=== PATIENT | female | born 1970 | race African-American/Black ===

== ENCOUNTER 2019-03-31 00:08 | Emergency (ER) | payer BC, OTHER ==
[~2019-03-31] VITALS: Ht 167.6 cm; Wt 74.8 kg
[2019-03-31 00:20] VITALS: BP 112/77
[2019-03-31 00:56] LABS: Basophils # (auto) 0 uL; Basophils % (auto) 0.3 % (0.0-2.0); Eosinophils # (auto) 0.1 uL; Hemoglobin 13.2 g/dL (12.2-16.2); Lymphocytes # (auto) 3.1 uL; Lymphocytes % (auto) 51.4 % (10.0-50.0); Mean Corpuscular Hemoglobin 30.5 pg (28.0-32.0); Mean Corpuscular Hgb Conc. 33.9 g/dL (32.0-36.0); Monocytes # (auto) 0.5 uL; Monocytes % (auto) 7.8 % (0.0-12.0); Neutrophils # (auto) 2.4 uL; Neutrophils % (auto) 39.5 % (37.0-80.0); Nucleated Red Blood Cells % 0.1 %; Platelet Count (auto) 242 10^3/uL (140-450); Red Blood Cells 4.34 10^6/uL (4.0-5.20)
[2019-03-31 01:17] LABS: Albumin 3.9 g/dL (3.4-5.0); Calcium 9.1 mg/dL (8.5-10.1); Magnesium 2.3 mg/dL (1.6-2.6); Potassium 4.1 mmol/L (3.5-5.1)
[2019-03-31 01:35] LABS: BUN/Creatinine Ratio 15.9; Bilirubin, Total 0.6 mg/dL (0.2-1.0); Total Protein 7.4 g/dL (6.4-8.2)
[2019-03-31 02:48] LABS: Urine Bacteria FEW /hpf (None Seen); Urine Blood Negative /uL (Negative); Urine Specific Gravity 1.029 (1.001-1.035); Urine WBC <1 /hpf (0 - 5)
== END 2019-03-31 04:59 | disposition left against medical advice (07) ==
LOC: ER 00:08
DX: R11.2 Nausea with vomiting, unspecified (principal); R19.7 Diarrhea, unspecified; R22.0 Localized swelling, mass and lump, head; Z53.21 Procedure and treatment not carried out due to patient leaving prior to being seen by health care provider
CPT/HCPCS: 36415; 80053; 81001; 83735; 84702; 85025

== ENCOUNTER 2023-07-16 19:56 | Emergency (ER) | payer BC ==
[~2023-07-16] VITALS: Ht 167.6 cm; Wt 75.4 kg
[2023-07-16 21:08] LABS: Urine Bacteria FEW /hpf (None Seen); Urine Blood Negative /uL (Negative); Urine Clarity HAZY (Clear); Urine Color Yellow (Yellow); Urine Mucus FEW (None Seen); Urine Protein, UAD TRACE (Negative); Urine Specific Gravity 1.029 (1.001-1.035); Urine Urobilinogen Normal (Negative); Urine WBC 28 /hpf (0 - 5)
[2023-07-16 21:25] LABS: Basophils # (auto) 0 10 ^3/uL (0-0.2); Basophils % (auto) 0.3 % (0.0-2.0); Eosinophils # (auto) 0.1 10 ^3/uL (0-0.8); Eosinophils % (auto) 0.9 % (0.0-7.0); Hematocrit 42.2 % (36.0-46.0); Hemoglobin 14.4 g/dL (12.2-16.2); Lymphocytes # (auto) 3.8 10 ^3/uL (0.4-5.4); Lymphocytes % (auto) 52.9 % (10.0-50.0); Mean Corpuscular Hgb Conc. 34.1 g/dL (32.0-36.0); Mean Corpuscular Volume 88.1 fL (80.0-100.0); Monocytes # (auto) 0.4 10 ^3/uL (0-1.3); Monocytes % (auto) 5.4 % (0.0-12.0); Neutrophils # (auto) 2.9 10 ^3/uL (1.6-8.6); Neutrophils % (auto) 40.5 % (37.0-80.0); Red Blood Cells 4.79 10^6/uL (4.0-5.20); Red Cell Distribution Width 13.1 % (11.8-14.3); White Blood Cell 7.2 10^3/uL (4.4-10.8)
[2023-07-16 21:36] LABS: Alanine Aminotransferase 25 U/L (7-40); Albumin 5.4 g/dL (3.2-4.8); Alkaline Phosphatase 64 U/L (46-116); Anion Gap 5 (5-15); Aspartate Aminotransferase 11 U/L (13-40); BUN/Creatinine Ratio 11.1 (10.0-20.0); Blood Urea Nitrogen 11 mg/dL (9-23); Calcium 10.2 mg/dL (8.7-10.4); Carbon Dioxide 32 mmol/L (20-30); Chloride 104 mmol/L (98-107); Glucose 109 mg/dL (74-106); Potassium 3.5 mmol/L (3.5-5.1); Sodium 141 mmol/L (136-145)
[2023-07-16 21:37] LABS: Bilirubin, Total 1.2 mg/dL (0.2-1.0); Total Protein 7.8 g/dL (5.7-8.2)
[2023-07-16] MEDS ORDERED: cefTRIAXone 1GM/50ML D5W 50 ML IV ONE (22:15)
[2023-07-16] MEDS ORDERED: CEPH500C PO (22:15)
[2023-07-16] MEDS ORDERED: ONDANSETRON HCL 4 MG/2 ML VIAL IV ONE (23:00)
[2023-07-16] MEDS ORDERED: HYDROmorphone HCL 2 MG/ML VL/or syr IV ONE (23:15)
[2023-07-16 23:31] VITALS: TEMP 98; O2SAT 98
[2023-07-16 23:45] VITALS: BP 148/90
[2023-07-17 00:16] VITALS: PULSE 70; RESP 16
== END 2023-07-17 00:20 | disposition home or self-care (01) ==
LOC: ER 19:56
DX: M54.59 Other low back pain (principal); R10.2 Pelvic and perineal pain; N39.0 Urinary tract infection, site not specified
CPT/HCPCS: 36415; 74176; 80053; 81001; 83605; 84702; 85025; 87086; 96365; 96375; 99285; J0696; J1170; J2405

== ENCOUNTER 2024-10-06 06:45 | Inpatient (IN) | payer BC, MEDICAID ==
[~2024-10-06] VITALS: Ht 162.6 cm; Wt 81.0 kg
[~2024-10-06 06:45] MED LIST: AML5T PO; ASPI-325 PO; CEFU500T43 PO; DOCU-265 PO; HYDR-4798; MECL-90 PO; ROSU20TA56 PO; VALS1TAB57 PO
--- NOTE | 2024-10-06 07:25 | ED.PDOC ---
GI ASSESSMENT HPI Comments 54 y.o female presents to the ED for a chief complaint of right lower abdominal pain radiating to her pelvic and right sided flank that presented one day ago. Patient describes pain as sharp, constant, rating a 9/10 on the pain scale and states no alleviating or modifying factors. Patient mentions having nausea and vomiting yesterday but none today. Patient denies any hematuria, dysuria, fever, chills, back pain. Chief Complaint: Abdominal Pain Time Seen by MD: 07:16 Primary Care Provider: JOSE Reviewed Notes: Nurses Notes, Medications, Allergies Allergies: Coded Allergies: Ketorolac Tromethamine (Verified Allergy, Unknown, 01/31/23) PATIENT REPORTS "JITTERNESS" Home Meds Active Scripts Cefuroxime Axetil (Cefuroxime Axetil) 500 Mg Tab, 500 MG PO BID for 7 Days, #14 TAB Prov:HOSSEIN GARCIA MD 11/01/23 Meclizine Hcl (Meclizine Hcl) 25 Mg Tab, 25 MG PO Q8HPRN PRN for 15 Days, #50 TAB Prov:HOSSEIN GARCIA MD 11/01/23 Amlodipine Besylate (NORVASC TABLET) 5 Mg Tb, 5 MG PO DAILY for 90 Days, #90 TAB Prov:HOSSEIN GARCIA MD 11/01/23 Valsartan (Valsartan) 80 Mg Tab, 160 MG PO BID@0700,1800 for 90 Days, #180 TAB Hold if systolic BP <110 Report to PMD if persistent dry cough or angioedema of lips Prov:HOSSEIN GARCIA MD 11/01/23 Reported Medications Aspirin (Aspirin Low Dose) 81 Mg Tab, 1 TAB PO 10/29/23 Docusate Sodium (Docusate Sodium) 100 Mg Cap, 1 CAP PO QHSP PRN for FOR CONSTIPATION 10/29/23 Rosuvastatin Calcium (Rosuvastatin Calcium) 20 Mg Tab, 1 TAB PO 10/29/23 Hydrocodone-Acetaminophen (Hydrocodone Bitartrate/AC 10-325 mg) 1 Tab Tab 10/29/23 Information Source: Patient Mode of Arrival: Ambulatory Timing: Days (1) Duration: Since onset Quality: Sharp Vomitus: None Stool: Normal Severity: Moderate Recent: None Recent Hx of: None Pain Location: RLQ Modifying Factors: Nothing Associated sign and symptoms: Abdominal Pain Past Medical History PAST MEDICAL HISTORY: HTN Surgical History: Denies all surgeries 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 Family History Family History: Reviewed,noncontributory to illness, No family hx of Cancer, No family hx of DM, No family hx of Heart jose cruz, No family hx of HTN, No family hx ofKidney jose cruz, No family hx of Liver jose cruz, No family hx of Lung jose cruz, No family hx of Stroke Social History Smoker: Non-Smoker Alcohol: Denies ETOH Use Drugs: Denies Drug Use Lives In: Home Constitutional: denies: chills, diaphoresis, fatigue, fever, malaise, sweats, weakness, others EENTM: denies: blurred vision, double vision, ear bleeding, ear discharge, ear drainage, ear pain, ear ringing, eye pain, eye redness, hearing loss, mouth pain , mouth swelling, nasal discharge, nose bleeding, nose congestion, nose pain, photophobia, tearing, throat pain, throat swelling, voice changes, others Respiratory: denies: cough, hemoptysis, orthopnea, SOB at rest, shortness of breath, SOB with excertion, stridor, wheezing, others Cardiovascular: denies: chest pain, dizzy spells, diaphoresis, Dyspnea on exertion, edema, irregular heart beat, left arm pain, lightheadedness, palpitations, PND, syncope, others Gastrointestinal: reports: abdominal pain; denies: abdomen distended, blood streaked bowels, constipated, diarrhea, dysphagia, difficulty swallowing, hematemesis, melena, nausea, poor appetite, poor fluid intake, rectal bleeding, rectal pain, vomiting, others Genitourinary: reports: flank pain; denies: abnormal vagina bleeding, burning, dyspareunia, dysuria, frequency, hematuria, incontinence, pain, , vagina discharge, urgency, others Neurological: denies: dizziness, fainting, headache, left sided numbness, left sided weakness, numbness, paresthesia, pre-existing deficit, right sided numbness, right sided weakness, seizure, speech problems, tingling, tremors, weakness, others Musculoskeletal: denies: back pain, gout, joint pain, joint swelling, muscle p ain, muscle stiffness, neck pain, others Integumetry: denies: bruises, change in color, change in hair/nails, dryness, laceration, lesions, lumps, rash, wounds, others Allergic/Immunocompromised: denies: Difficulty Healing, Frequent Infections, Hives, Itching, others Hematologic/Lymphatic: denies: anemia, blood clots, easy bleeding, easy bruising, swollen glands, others Endocrine: denies: excessive hunger, excessive sweating, excessive thirst, excessive urination, flushing, intolerance to cold, intolerance to heat, unexplained weight gain, unexplained weight loss, others Psychiatric: denies: anxiety, bipolar disorder, depression, hopeless, panic disorder, schizophrenia, sleepless, suicidal, others All Other Systems: Reviewed and Negative Physical Exam General Appearance: Moderate Distress HEENT: Normal ENT Inspection, Pharynx Normal, TMs Normal Neck: Full Range of Motion, Non-Tender, Normal, Normal Inspection Respiratory: Chest Non-Tender, Lungs Clear, No Accessory Muscle Use, No Respiratory Distress, Normal Breath Sounds Cardiovascular: No Edema, No JVD, No Murmur, No Gallop, Normal Peripheral Pulses, Regular Rate/Rhythm Breast Exam: Deferred Gastrointestinal: Soft, Suprapubic Genitalia: Deferred Pelvic: Deferred Rectal: Deferred Extremities: No calf tenderness, Normal capillary refill, Normal inspection, Normal range of motion, Non-tender, No pedal edema Musculoskeletal : Apperance: Normal Neurologic: Alert, sharples machine operator II-XII nml as Tested, No Motor Deficits, Normal Affect, Normal Mood, No Sensory Deficits Cerebellar Function: Normal Reflexes: Normal Skin: Dry, Normal Color, Warm Peripheral Pulses: 3+ Radial (R), 3+ Radial (L) Lymphatic: No Adenopathy Was a procedure done? Was a procedure done?: No GI differential Dx Differential Diagnosis: Constipation, Diverticular disease, Esophagitis, Gas tritis/PUD, Gastroenteritis, Ovarian cyst/torsion, Electrolyte Imbalance, Viral Other Differential Diagnosis Colitis X-Ray, Labs, Meds, VS Vital Signs Date Time Temp Pulse Resp B/P (MAP) Pulse Ox O2 Delivery O2 Flow Rate FiO2 10/06/24 08:24 60 18 107/78 10/06/24 07:55 74 16 133/90 10/06/24 07:43 69 18 96 Room Air 10/06/24 07:43 97.6 68 18 133/90 (104) 98 97.6 10/06/24 06:58 97.6 74 16 120/94 (103) 97 Lab Test 10/06/24 07:16 10/06/24 06:58 Range/Units White Blood Count 6.1 4.4-10.8 10^3/uL Red Blood Count 4.79 4.0-5.20 10^6/uL Hemoglobin 14.6 12.2-16.2 g/dL Hematocrit 42.4 36.0-46.0 % Mean Corpuscular Volume 88.6 80.0-100.0 fL Mean Corpuscular Hemoglobin 30.5 28.0-32.0 pg Mean Corpuscular Hemoglobin Concent 34.4 32.0-36.0 g/dL Red Cell Distribution Width 13.4 11.8-14.3 % Platelet Count 239 140-450 10^3/uL Mean Platelet Volume 7.9 6.9-10.8 fL Neutrophils (%) (Auto) 37.0-80.0 % Lymphocytes (%) (Auto) 10.0-50.0 % Monocytes (%) (Auto) 0.0-12.0 % Basophils (%) (Auto) 0.0-2.0 % Neutrophils # (Auto) 1.6-8.6 10 ^3/uL Lymphocytes # (Auto) 0.4-5.4 10 ^3/uL Monocytes # (Auto) 0-1.3 10 ^3/uL Differential Total Cells Counted 100.0 100 Neutrophils % (Manual) 27 L 37.0-80.0 Band Neutrophils % (Manual) 0 Lymphocytes % (Manual) 68 H 10.0-50.0 Monocytes % (Manual) 3 0-12 Eosinophils % (Manual) 2 0-7 Basophils % (Manual) 0 0.0-2.0 Metamyelocytes % (manual) 0 Myelocytes % (Manual) 0 Promyelocytes % (Manual) 0 Blast Cells % (Manual) 0 Reactive Lymphocytes 0 Platelet Estimate Adequate Sodium Level 143 136-145 mmol/L Potassium Level 4.0 3.5-5.1 mmol/L Chloride Level 106 98-107 mmol/L Carbon Dioxide Level 29 20-31 mmol/L Anion Gap 8 5-15 Blood Urea Nitrogen 13 9-23 mg/dL Creatinine 0.96 0.550-1.02 mg/dL Glomerular Filtration Rate Calc 71 >90 mL/min BUN/Creatinine Ratio 13.5 10.0-20.0 Serum Glucose 112 H 74-106 mg/dL Calcium Level 10.2 8.7-10.4 mg/dL Lipase 29 12-53 U/L Urine Color Yellow Yellow Urine Clarity Turbid H Clear Urine pH 5.5 5.0-9.0 Urine Specific [place] 1.028 1.001-1.035 Urine Protein Negative Negative Urine Ketones Negative Negative Urine Blood Negative Negative /uL Urine Nitrite Negative Negative Urine Bilirubin Negative Negative Urine Urobilinogen 2 H Negative mg/dL Urine Leukocyte Esterase Negative Negative /uL Urine RBC 7 0 - 4 /hpf Urine WBC 1 0 - 5 /hpf Urine Squamous Epithelial Cells Few <5 /hpf Urine Bacteria None seen None Seen /hpf Urine Glucose Normal Normal mg/dL Current Medications Medications (Trade) Dose Ordered Sig/Krupa Route Start Time Stop Time Status Last Admin Morphine Sulfate 2 mg ONCE ONCE IV 10/06/24 07:30 10/06/24 07:31 DC 10/06/24 07:55 Ondansetron HCl (Zofran) 4 mg ONCE ONCE IV 10/06/24 07:30 10/06/24 07:31 DC 10/06/24 07:54 Patient alert. Complaining of abdominal pain. Abdomen is soft nontender. Vitals stable. Answering all questions. Ambulating. Continues to have abdominal pain. Excruciating pain. Establish intravenous access. Was given morphine. Was given Zofran. Possible colitis. Reviewed her previous visit. Explained to the patient. Continue cardiac monitoring. Time of 1ST Reevaluation: 07:21 Reevaluation 1ST: Unchanged Patient Education/Counseling: Diagnosis, Treatment, Prognosis Family Education/Counseling: No Family Present Additional Information The following tests were ordered, and results were reviewed by me: LAB, PHA, UA I discussed treatment and results with medical personnel Departure 1 Departure Time of Disposition: 07:30 Impression: Primary Impression: Non-specific colitis Disposition: 09 ADMITTED INPATIENT Admit to: Med Surg Condition: Guarded Critical Care Note Critical Care Time?: No Stability Stability form required: No I personally scribed for DREA MICHELLE MD ([email or web address]) on 10/06/24 at 07:25. Electronically submitted by Jazmín Freeman ([facility]). I personally scribed for DREA MICHELLE MD ([email or web address]) on 10/06/24 at 10:50. Electronically submitted by Jazmín Freeman ([facility]). DREA MICHELLE MD Oct 06, 2024 07:25
[2024-10-06 07:43] LABS: Hematocrit 42.4 % (36.0-46.0); Hemoglobin 14.6 g/dL (12.2-16.2); Mean Corpuscular Hemoglobin 30.5 pg (28.0-32.0); Mean Corpuscular Hgb Conc. 34.4 g/dL (32.0-36.0); Mean Corpuscular Volume 88.6 fL (80.0-100.0); Platelet Count (auto) 239 10^3/uL (140-450); Red Blood Cells 4.79 10^6/uL (4.0-5.20); Red Cell Distribution Width 13.4 % (11.8-14.3); White Blood Cell 6.1 10^3/uL (4.4-10.8)
[2024-10-06 07:44] LABS: Chloride 106 mmol/L (98-107); Sodium 143 mmol/L (136-145)
[2024-10-06 07:45] LABS: Anion Gap 8 (5-15); Calcium 10.2 mg/dL (8.7-10.4); Carbon Dioxide 29 mmol/L (20-31)
[2024-10-06 07:47] LABS: Band Neutrophils % (manual) 0; Basophils % (manual) 0 (0.0-2.0); Blast Cells 0; Metamyelocytes % 0; Myelocytes % 0; Promyelocytes % 0; Reactive Lymphocytes 0
[2024-10-06 07:50] LABS: BUN/Creatinine Ratio 13.5 (10.0-20.0); Blood Urea Nitrogen 13 mg/dL (9-23)
[2024-10-06 07:51] LABS: Lipase 29 U/L (12-53)
[2024-10-06] MEDS: ONDANSETRON HCL 4 MG/2 ML VIAL IV ONE (07:54)
[2024-10-06] MEDS: MORPHINE SULFATE INJ 2 MG/ml SYRG IV ONE (07:55)
[2024-10-06 07:57] LABS: Glucose 112 mg/dL (74-106)
[2024-10-06 08:07] LABS: Urine Bacteria None Seen /hpf (None Seen)
[2024-10-06 08:42] LABS: Eosinophils % (manual) 2 (0-7); Lymphocytes % (manual) 68 (10.0-50.0); Monocytes % (manual) 3 (0-12)
[2024-10-06 08:43] LABS: Platelet Estimate Adequate
[2024-10-06 08:53] LABS: Urine Blood Negative /uL (Negative); Urine Clarity Turbid (Clear); Urine Color Yellow (Yellow); Urine Protein, UAD Negative (Negative); Urine Specific Gravity 1.028 (1.001-1.035); Urine Urobilinogen 2 mg/dL (Negative); Urine WBC 1 /hpf (0 - 5); Urine pH 5.5 (5.0-9.0)
[2024-10-06] MEDS ORDERED: MORPHINE SULFATE INJ 2 MG/ml SYRG IV PRN (10:45)
[2024-10-06] MEDS ORDERED: NITROGLYCERIN 0.4 MG SL TAB SL PRN (10:45)
[2024-10-06] MEDS ORDERED: DOCUSATE SOD 100 MG CAP PO PRN (10:45)
[2024-10-06 11:37] VITALS: BP 132/74; PULSE 56; RESP 18; TEMP 97.6; O2SAT 100
[2024-10-06 11:43] LABS: Magnesium 2.3 mg/dL (1.6-2.6)
[2024-10-06] MEDS: SOD CHL 0.45% 1,000 ML IV ONE (11:56)
[2024-10-06 12:00] VITALS: BP_SYST 141; BP_SYST 153; BP_DIAS 70; BP_DIAS 98; PULSE 100; PULSE 59; RESP 18; RESP 20; TEMP 97.5; TEMP 97.7; O2SAT 90; O2SAT 98
[2024-10-06] MEDS: HYDROmorphone HCL 2 MG/ML VL/or syr IV PRN ×2 (12:12→17:23)
--- NOTE | 2024-10-06 15:28 | DVH ---
ULTRASOUND ABDOMEN COMPLETE INDICATION: pelvic pains' TECHNIQUE: Multiple real-time sonographic images of the abdomen were obtained. COMPARISON: CT abdomen 07/16/2023 FINDINGS: The visualized liver parenchyma appears echogenic consistent with steatosis. . The liver measures 16.8 cm. No discrete hepatic lesion or intrahepatic biliary ductal dilatation is identified. There is no evidence of gallstones, gallbladder wall thickening or pericholecystic fluid. The common biliary duct is not dilated. The right kidney measures 10 cm length. The left kidney measures 10.1 cm. No sonographic evidenc e of nephrolithiasis or hydronephrosis. The spleen measures 7.5 cm and appears within normal limits. Pancreas is obscured by bowel gas. The visualized portions of the IVC and aorta are grossly unremarkable. IMPRESSION: 1. Hepatic steatosis. HS:Y
--- NOTE | 2024-10-06 15:43 | DVH ---
TRANSABDOMINAL AND TRANSVAGINAL PELVIC ULTRASOUND CLINICAL HISTORY: PELVIC PAIN TECHNIQUE: Multiple grayscale ultrasound images were obtained of the pelvis via transabdominal and tr ansvaginal approach. Limited color Doppler and spectral Doppler acquisitions were also obtained. COMPARISON: CT abdomen and pelvis from 07/16/2023 FINDINGS: Uterus: 7.8 x 6.7 x 5.1 cm. The uterine contour is smooth. There is a partially calcified uterine fib roid in the posterior right uterine body measuring up to 3.1 cm. Endometrium: 4.8 mm cervical nabothian cyst No endometrial mass is seen. Right adnexa: right ovary 2.0 x 1.6 x 2.6 cm. Normal arterial blood flow in the ovary. No right adnex al mass seen. Left adnexa: left ovary 2.2 x 1.4 x 1.5 cm. Normal arterial blood flow in the ovary. No left adnexal mass seen. Other: None IMPRESSION: 1. Fibroid uterus. 2. Normal ovaries.
[2024-10-06 17:00] VITALS: BP 151/80; PULSE 65; RESP 19; TEMP 98.3; O2SAT 97
[2024-10-06] MEDS: ASPirin-EC 81 mg tab PO SCH (18:59)
[2024-10-06] MEDS: VALSARTAN 80 MG TAB PO SCH (19:07)
[2024-10-06 21:00] VITALS: BP 131/80; PULSE 53; RESP 16; TEMP 97.4; O2SAT 96
[2024-10-07] VITALS (7 sets, daily range): BP systolic 107–151; BP diastolic 49–87; PULSE 50–68; RESP 15–18; TEMP 97.4–98.6; O2SAT 95–100
[2024-10-07] MEDS: HYDROmorphone HCL 2 MG/ML VL/or syr IV PRN ×3 (02:09→19:04)
[2024-10-07] MEDS: metroNIDAZOLE 500MG/100ML 100 ML IV SCH (02:17)
[2024-10-07] MEDS: CEFEPIME 1GM/ 50ML 50 ML IV SCH (03:37)
[2024-10-07 07:41] LABS: Basophils # (auto) 0 10 ^3/uL (0-0.2); Basophils % (auto) 0.3 % (0.0-2.0); Eosinophils # (auto) 0.1 10 ^3/uL (0-0.8); Eosinophils % (auto) 2.2 % (0.0-7.0); Hematocrit 40.5 % (36.0-46.0); Hemoglobin 14.1 g/dL (12.2-16.2); Lymphocytes # (auto) 2.7 10 ^3/uL (0.4-5.4); Lymphocytes % (auto) 50.3 % (10.0-50.0); Mean Corpuscular Hemoglobin 30.6 pg (28.0-32.0); Mean Corpuscular Hgb Conc. 34.7 g/dL (32.0-36.0); Mean Corpuscular Volume 88.1 fL (80.0-100.0); Monocytes # (auto) 0.4 10 ^3/uL (0-1.3); Monocytes % (auto) 7.3 % (0.0-12.0); Neutrophils # (auto) 2.2 10 ^3/uL (1.6-8.6); Neutrophils % (auto) 39.9 % (37.0-80.0); Nucleated Red Blood Cells % 0.1 %; Platelet Count (auto) 220 10^3/uL (140-450); Red Cell Distribution Width 13.1 % (11.8-14.3); White Blood Cell 5.4 10^3/uL (4.4-10.8)
[2024-10-07 07:54] LABS: Albumin 4.4 g/dL (3.2-4.8); Alkaline Phosphatase 71 U/L (46-116); Anion Gap 9 (5-15); Aspartate Aminotransferase 13 U/L (13-40); Calcium 9.9 mg/dL (8.7-10.4); Carbon Dioxide 26 mmol/L (20-31); Chloride 106 mmol/L (98-107); Lipase 29 U/L (12-53); Potassium 3.8 mmol/L (3.5-5.1); Sodium 141 mmol/L (136-145); Total Protein 6.9 g/dL (5.7-8.2)
[2024-10-07 07:55] LABS: Alanine Aminotransferase 42 U/L (7-40); Bilirubin, Total 1.3 mg/dL (0.2-1.0); Glucose 112 mg/dL (74-106)
[2024-10-07 08:22] LABS: BUN/Creatinine Ratio 12.7 (10.0-20.0); Blood Urea Nitrogen 8 mg/dL (9-23)
[2024-10-07] MEDS: PANTOPRAZOLE 40 MG/10 ML VIAL INJ IV SCH (09:43)
[2024-10-07] MEDS: amLODIPine BESYLATE 5 MG TAB PO SCH (10:00)
--- NOTE | 2024-10-07 11:30 | DVH ---
Exam: CT CT AB PEL WITH ORAL CON ONLY History: RUQ PAIN Comparison Study: CT CT AB PEL WO CON-NO ORAL OR IV on DOS: 07/16/23, CT CT AB PEL WO CON-NO ORAL OR IV on DOS: 01/31/23 Technique: Multidetector spiral CT of the abdomen and pelvis was performed from lung bases to pubic symphysis. Imaging was performed without IV contrast. Axial, coronal and sagittal multiplanar reform ats were obtained from the axial data set by the technologist. Radiation dose : Abdomen/Pelvis: CTDIvol 12 mGy, DLP 566 mGy*cm. Findings: Evaluation of solid organs is limited due to lack of intravenous contrast use. Lung Bases: No acute or significant lung base finding. Normal heart size. No pleural or pericardial effusion. Liver: The liver is normal in size. No focal lesions. Gallbladder and biliary Tree: Unremarkable Spleen: Unremarkable Pancreas: The pancreas is grossly normal in appearance. Adrenal Glands: Unremarkable Kidneys: Punctate right upper pole renal calculus. No hydronephrosis. Bladder: Grossly unremarkable for degree of distention. Bowel: The stomach is grossly normal in appearance. Small bowel and colon are normal in caliber and d istribution. Normal appendix is visualized in the right lower quadrant without findings of appendici tis. Ascites: Absent Lymphadenopathy: No mesenteric, retroperitoneal or periportal lymphadenopathy. Abdominal wall and Mesentery: Unremarkable. Vasculature: The visualized abdominal aorta is normal in size and caliber. Evaluation of abdominal a nd pelvic vessels is limited due to lack of intravenous contrast. Pelvic Organs: Uterus appears enlarged with punctate calcifications, suspect fibroids. Musculoskeletal: No aggressive focal bony lesions, acute fractures or dislocation. IMPRESSION: 1. Punctate nonobstructive right renal calculus. Enlarged uterus with likely fibroids. Radiation optimization: All CT scans at this facility use at least one of these dose optimization monika hniques: Automated exposure control mA and/or kV adjustment per patient size (includes targeted exams where dose is matched to clinical indication) or iterative reconstruction. HS:Y
[2024-10-07] MEDS: GASTROGRAFIN 30 ML SOL ONE (18:36)
[2024-10-07] MEDS: ONDANSETRON HCL 4 MG/2 ML VIAL IV PRN (19:02)
[2024-10-07] MEDS: HYDROcodone-ACET 10/325MG TAB PO PRN (23:18)
[2024-10-08] VITALS (7 sets, daily range): BP systolic 122–151; BP diastolic 65–83; PULSE 51–75; RESP 13–18; TEMP 97.7–98; O2SAT 96–100
[2024-10-08] MEDS: HYDROmorphone HCL 2 MG/ML VL/or syr IV PRN (00:28)
--- NOTE | 2024-10-08 08:19 | DVHINCON2 ---
Date of service: Oct 08, 2024 Reason for Consultation Abdominal pain Uterine Fibroid 3.1 cm History of Present Illness HPI 54y AA female AB8 LMP = Menopause at age 46 Admitted with 2 day history of diffuse lower abd pain, originating in RLQ and now localized to LLQ Pain is constant, radiates to leg. Denies fever/chills, vaginal bleeding, no diarrhea/constipation or rectal bleeding Endorse N/V x 1 episode day before admission. Incidental finding of a 3.1 cm calcified uterine fibroid on CT scan and Pelvic US Patient denies any abnormal uterine bleeding, no pain w/ intercourse, denies bloating or symptoms of mass effect Last PAP within 1 year, sees [employer] Dr. Elaine regularly. 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 + THC use (marijuana) Family Hx: Denies family hx of uterine, breast, colon or ovarian cancers. Home Meds Active Scripts Cefuroxime Axetil (Cefuroxime Axetil) 500 Mg Tab, 500 MG PO BID for 7 Days, #14 TAB Prov:HOSSEIN GARCIA MD 11/01/23 Meclizine Hcl (Meclizine Hcl) 25 Mg Tab, 25 MG PO Q8HPRN PRN for 15 Days, #50 TAB Prov:HOSSEIN GARCIA MD 11/01/23 Amlodipine Besylate (NORVASC TABLET) 5 Mg Tb, 5 MG PO DAILY for 90 Days, #90 TAB Prov:HOSSEIN GARCIA MD 11/01/23 Valsartan (Valsartan) 80 Mg Tab, 160 MG PO BID@0700,1800 for 90 Days, #180 TAB Hold if systolic BP <110 Report to PMD if persistent dry cough or angioedema of lips Prov:HOSSEIN GARCIA MD 11/01/23 Reported Medications Aspirin (Aspirin Low Dose) 81 Mg Tab, 1 TAB PO 10/29/23 Docusate Sodium (Docusate Sodium) 100 Mg Cap, 1 CAP PO QHSP PRN for FOR CONSTIPATION 10/29/23 Rosuvastatin Calcium (Rosuvastatin Calcium) 20 Mg Tab, 1 TAB PO 10/29/23 Hydrocodone-Acetaminophen (Hydrocodone Bitartrate/AC 10-325 mg) 1 Tab Tab 10/29/23 Past Medical History Patient Family History: Patient reports no known family medical history. Review of Systems Constitutional: No symptom reported Ears, Nose, & Throat: No symptom reported Eyes: No symptom reported Pulmonary/Respiratory: No symptom reported Cardiovascular: No symptom reported Gastrointestinal: Nausea, Vomiting, Abdominal Pain Genitourinary: No symptom reported Musculoskeletal: No symptom reported Skin: No symptom reported Psychiatric: No symptom reported Endocrine: No symptom reported Hemotologic/Lymphatic: No symptom reported H&P Exam Vital Signs Vital Signs Date Time Temp Pulse Resp B/P (MAP) Pulse Ox O2 Delivery O2 Flow Rate FiO2 10/08/24 07:02 150/78 10/08/24 05:02 75 17 10/08/24 05:00 98.0 100 98.0 10/07/24 20:00 Room Air* 0 21 General Appeara: Well developed, Well nourished, Normal Appearance Head Exam: Normal inspection Neck Exam: Normal inspection Eye Exam: bilateral eye PERRL Pulmonary/Respiratory: Normal inspection, Normal breath sounds Cardiovascular/Chest: Normal inspection, Regular rate, Normal Rhythm Abdominal Exam: Normal bowel sounds, Soft, No hepatospenomegaly, No masses, Oth er (Tender in RLQ and LLQ, no rebound) Abdominal Pain Onset Location: RLQ Rectal Exam: Deferred Back Exam: Normal inspection Pelvic Exam: Not done 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 SLITTER Exam: Normal hearing, Normal speech Appearance: Appropriate appearance, Appropriate insight Thoughts/Psych: Normal thought pattern Labs/Xrays PATIENT: RAMANA OLSONCT: [id number] UNIT: [id number] : 1970 LOC: [facility] ROOM / BED: [facility] / A AGE / SEX: 54 / F ADM STATUS: ADM IN SERVICE 0000 ORDERING PHYSICIAN: HOSSEIN GARCIA MD PROCEDURE(s): PELUS - PELVIC REASON: PELVIC PAIN ORDER NUMBER(s): [id number], ACCESSION NUMBER(s): [id number] TRANSABDOMINAL AND TRANSVAGINAL PELVIC ULTRASOUND CLINICAL HISTORY: PELVIC PAIN TECHNIQUE: Multiple grayscale ultrasound images were obtained of the pelvis via transabdominal and transvaginal approach. Limited color Doppler and spectral Doppler acquisitions were also obtained. COMPARISON: CT abdomen and pelvis from 07/16/2023 FINDINGS: Uterus: 7.8 x 6.7 x 5.1 cm. The uterine contour is smooth. There is a partially calcified uterine fibroid in the posterior right uterine body measuring up to 3.1 cm. Endometrium: 4.8 mm cervical nabothian cyst No endometrial mass is seen. Right adnexa: right ovary 2.0 x 1.6 x 2.6 cm. Normal arterial blood flow in the ovary. No right adnexal mass seen. Left adnexa: left ovary 2.2 x 1.4 x 1.5 cm. Normal arterial blood flow in the ovary. No left adnexal mass seen. Other: None IMPRESSION: 1. Fibroid uterus. 2. Normal ovaries. ATED BY: ENDER COOLEY MD DICTATED DATE/TIME: 10/06/24 1541 Labs Test 10/07/24 06:58 10/06/24 07:16 10/06/24 06:58 Range/Units White Blood Count 5.4 4.4-10.8 10^3/uL Red Blood Count 4.60 4.0-5.20 10^6/uL Hemoglobin 14.1 12.2-16.2 g/dL Hematocrit 40.5 36.0-46.0 % Mean Corpuscular Volume 88.1 80.0-100.0 fL Mean Corpuscular Hemoglobin 30.6 28.0-32.0 pg Mean Corpuscular Hemoglobin Concent 34.7 32.0-36.0 g/dL Red Cell Distribution Width 13.1 11.8-14.3 % Platelet Count 220 140-450 10^3/uL Mean Platelet Volume 7.8 6.9-10.8 fL Neutrophils (%) (Auto) 39.9 37.0-80.0 % Lymphocytes (%) (Auto) 50.3 H 10.0-50.0 % Monocytes (%) (Auto) 7.3 0.0-12.0 % Eosinophils (%) (Auto) 2.2 0.0-7.0 % Basophils (%) (Auto) 0.3 0.0-2.0 % Neutrophils # (Auto) 2.2 1.6-8.6 10 ^3/uL Lymphocytes # (Auto) 2.7 0.4-5.4 10 ^3/uL Monocytes # (Auto) 0.4 0-1.3 10 ^3/uL Eosinophils # (Auto) 0.1 0-0.8 10 ^3/uL Basophils # (Auto) 0 0-0.2 10 ^3/uL Nucleated Red Blood Cells 0.1 % Sodium Level 141 136-145 mmol/L Potassium Level 3.8 3.5-5.1 mmol/L Chloride Level 106 98-107 mmol/L Carbon Dioxide Level 26 20-31 mmol/L Anion Gap 9 5-15 Blood Urea Nitrogen 8 L 9-23 mg/dL Creatinine 0.63 # 0.550-1.02 mg/dL Glomerular Filtration Rate Calc 106 >90 mL/min BUN/Creatinine Ratio 12.7 10.0-20.0 Serum Glucose 112 H 74-106 mg/dL Calcium Level 9.9 8.7-10.4 mg/dL Total Bilirubin 1.3 H 0.2-1.0 mg/dL Aspartate Amino Transferase (AST) 13 13-40 U/L Alanine Aminotransferase (ALT) 42 H 7-40 U/L Alkaline Phosphatase 71 46-116 U/L Total Protein 6.9 5.7-8.2 g/dL Albumin 4.4 3.2-4.8 g/dL Lipase 29 12-53 U/L Differential Total Cells Counted 100.0 100 Neutrophils % (Manual) 27 L 37.0-80.0 Band Neutrophils % (Manual) 0 Lymphocytes % (Manual) 68 H 10.0-50.0 Monocytes % (Manual) 3 0-12 Eosinophils % (Manual) 2 0-7 Basophils % (Manual) 0 0.0-2.0 Metamyelocytes % (manual) 0 Myelocytes % (Manual) 0 Promyelocytes % (Manual) 0 Blast Cells % (Manual) 0 Reactive Lymphocytes 0 Platelet Estimate Adequate Phosphorus Level 3.0 2.4-5.1 mg/dL Magnesium Level 2.3 1.6-2.6 mg/dL Urine Color Yellow Yellow Urine Clarity Turbid H Clear Urine pH 5.5 5.0-9.0 Urine Specific [place] 1.028 1.001-1.035 Urine Protein Negative Negative Urine Ketones Negative Negative Urine Blood Negative Negative /uL Urine Nitrite Negative Negative Urine Bilirubin Negative Negative Urine Urobilinogen 2 H Negative mg/dL Urine Leukocyte Esterase Negative Negative /uL Urine RBC 7 0 - 4 /hpf Urine WBC 1 0 - 5 /hpf Urine Squamous Epithelial Cells Few <5 /hpf Urine Bacteria None seen None Seen /hpf Urine Glucose Normal Normal mg/dL Microbiology Date/Time Source Procedure Growth Status 10/06/24 06:58 Voided Urine Urine Culture - Preliminary Resulted Assessment/Plan Admitting Diagnosis: Acute abdominal pain, not AUTOMATIC I THREADING 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 AUTOMATIC I THREADING MACHINE FEEDER Will sign off. reconsult if necessary may follow up outpatient in AUTOMATIC I THREADING MACHINE FEEDER clinic upon discharge. Plan discussed with: Patient Date of Service: Oct 08, 2024 Billing Provider: CORINE SOLOMON DO Common Visit Codes: CONSULT ONLY Consultation Codes: [id number] CONSULT <60MIN CORINE SOLOMON DO Oct 08, 2024 08:18
--- NOTE | 2024-10-08 23:54 | DVHHP2 ---
Admitting Diagnosis: History of Present Illness Past Medical History Past medical history records: Reviewed Cardiovascular: Known history of hypertension x 5 years no CAD Recommended valsartan-at times noncompliance Respiratory: No known history of asthma COPD Gastrointestinal: No known history of peptic ulcer disease, GI bleeding Genitourinary: Urinary tract infection Endocrine: No history of diabetes Neurology: No history of CVA Musculoskeletal: Chronic back pains Hemato-oncology: No history of anemia Psychiatric: No history of depression or anxiety Past Surgical History Not contributory Family History No known history of hypertension diabetes CVA, cancer Social History 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, 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 [employer] History of smoking: Cigarettes: Non-smoker History of smoking E cigarettes: Denies History of smoking marijuana: Denies History of drinking alcohol: Denies History of substance abuse: Denies Allergies: Coded Allergies: Ketorolac Tromethamine (Verified Allergy, Unknown, 01/31/23) PATIENT REPORTS "JITTERNESS" Home Meds Active Scripts Cephalexin Monohydrate (Cephalexin) 500 Mg Cap, 500 MG PO Q6HR for 7 Days, #28 CAP Prov:CELSETINO GARDUNO DO 07/16/23 Review of Systems Constitutional: Denies easy tiredness, denies fever or chills HEENT: Denies headache/conjunctival/ENT pains or congestion, Denies hoarse voice, hearing or visual deficit Neck: Denies cervical spine local/radicular pains, denies goiters/stridor Denies stiffness spasms, reduced ROM, RS: Denies chest congestion, cough, wheezing, SOB, pleuritic chest pains CVS: Denies angina, palpitation, SOB, edema, orthopnea, PND GI: Reports loss of appetite, abdominal pains, tenderness, nausea, Denies melena, GI bleeding,constipation, vomiting, diarrhea : Reports dysuria, flank pains, frequency, hematuria, Reports passing foul odor/cloudy turbid urine, nocturia MS: Reports low back pains stiffness, Denies radicular pains, denies generalized myalgias/muscle weakness EXTs: Denies edema, rash, open wounds, discoloration, radicular pains NEURO: Denies hypersomnolence, confused mental status, Denies focal weakness or seizures/tremors/myoclonic jerks SKIN: Denies rashes or open ulcerated wound ENDOCRINE: Denies polyuria, polydipsia, denies intolerance to heat and cold HEM/LYMPH: Denies easy tiredness, bruising, lymphadenopathy ALLERGY: Denies allergic reactions Psychiatry: Denies anxiety or depression disorder Otherwise the Review of Systems is Negative as per History & Physical Interview: Yes Vital Signs Vital Signs Date Time Temp Pulse Resp B/P (MAP) Pulse Ox O2 Delivery O2 Flow Rate FiO2 01/31/23 17:18 65 18 144/66 (92) 95 01/31/23 17:14 65 18 144/66 01/31/23 16:51 77 17 138/68 01/31/23 16:48 97.4 77 18 138/68 (91) 99 97.4 01/31/23 16:15 97.0 68 18 142/79 (100) 98 Physical Exam General appearance: Well-developed, well-nourished middle-aged AA female Reports discomfort due to pelvic pains in no respiratory distress Awake alert oriented x3 no respiratory distress Head: Normocephalic nontraumatic Eyes: EOMI, MOHAMUD, sclera nonicteric, conjunctive- pale ENT: No congestion, NSL bilateral symmetrical, oral mucosa dry Neck: Supple, carotid upstroke +2, trachea midline, JVD-3 cm, C spine- Full ROM No thyroid or lymph node , no use of sternomastoid muscle Chest: Bilateral symmetrical expansions, No costochondral tenderness Breasts: I exam - Bilateral symmetrical, Pexam - deferred Lungs: clear breath sounds all over except reduced at bases CVS: PMI- cm medial to L MCL in fifth ICS , S1-S2 NSR no S3 GI: Abdomen soft, obese, bowel sounds normoactive Bilateral lower quadrant tenderness, no rebound tenderness No hepatosplenomegaly, no mass no hernia , : CVA tenderness, no bladder mass palpable, genitalia-NE SKIN: Turgor normal, color pink, no rash, no icterus, No varicosity, no ulcers or wounds EXTs: No edema, color pink, no rash, no ecchymosis distal pulses +2 capillary refill <2 seconds, no open wounds JOINTS: full range of motion BACK: Para lumbosacral spinal muscle tenderness, LYMPH NODES: No cervical, axillary or inguinal lymph nodes Neuro: Awake alert oriented 4, coherent, all cognitives- intact No pronator drift, no focal motor deficit, No focal sensory deficit, DTR +2, gait steady PSYCH: Affect mildly depressed-denies suicidal ideation Diagnostics lab studies CBC-total WBC 5.8, hemoglobin 14.9 g%/hematocrit 42.3 and platelet 256 K CMP-Na-137, K-4, CL 104, CO2 28, BUN 14, creatinine 1.21 mg/dL Liver panel-AST 15, ALT 36, alkaline phosphatase 67, TP-8.1, TB-0.8 Urine analysis-specific gravity 1029, leukoesterase positive, moderate bacteria Results Labs Test 02/02/23 07:55 02/02/23 03:30 01/31/23 18:34 01/31/23 16:44 Range/Units White Blood Count 4.8 4.4-10.8 10^3/uL Red Blood Count 4.62 4.0-5.20 10^6/uL Hemoglobin 14.2 12.2-16.2 g/dL Hematocrit 41.4 36.0-46.0 % Mean Corpuscular Volume 89.7 80.0-100.0 fL Mean Corpuscular Hemoglobin 30.7 28.0-32.0 pg Mean Corpuscular Hemoglobin Concent 34.2 32.0-36.0 g/dL Red Cell Distribution Width 12.9 11.8-14.3 % Platelet Count 226 140-450 10^3/uL Mean Platelet Volume 7.6 6.9-10.8 fL Neutrophils (%) (Auto) 40.5 37.0-80.0 % Lymphocytes (%) (Auto) 49.2 10.0-50.0 % Monocytes (%) (Auto) 8.6 0.0-12.0 % Eosinophils (%) (Auto) 1.3 0.0-7.0 % Basophils (%) (Auto) 0.4 0.0-2.0 % Neutrophils # (Auto) 1.9 1.6-8.6 10 ^3/uL Lymphocytes # (Auto) 2.3 0.4-5.4 10 ^3/uL Monocytes # (Auto) 0.4 0-1.3 10 ^3/uL Eosinophils # (Auto) 0.1 0-0.8 10 ^3/uL Basophils # (Auto) 0 0-0.2 10 ^3/uL Nucleated Red Blood Cells 0.2 % Sodium Level 136 136-145 mmol/L Potassium Level 4.2 3.5-5.1 mmol/L Chloride Level 106 98-107 mmol/L Carbon Dioxide Level 27 21-32 mmol/L Anion Gap 3 L 5-15 Blood Urea Nitrogen 12 7-18 mg/dL Creatinine 0.86 0.550-1.02 mg/dL Estimated GFR () 89 mL/min Estimated GFR (Non- 74 mL/min BUN/Creatinine Ratio 14.0 10.0-20.0 Serum Glucose 105 74-106 mg/dL Calcium Level 9.0 8.5-10.1 mg/dL Total Bilirubin 0.8 0.2-1.0 mg/dL Aspartate Amino Transferase (AST) 16 15-37 U/L Alanine Aminotransferase (ALT) 30 13-56 U/L Alkaline Phosphatase 61 45-117 U/L Total Protein 7.5 6.4-8.2 g/dL Albumin 3.9 3.4-5.0 g/dL Urine Color Colorless Yellow Urine Clarity Clear Clear Urine pH 5.5 5.0-8.0 Urine Specific [place] 1.014 1.001-1.035 Urine Protein Negative Negative Urine Ketones Negative Negative Urine Blood Negative Negative /uL Urine Nitrite Negative Negative Urine Bilirubin Negative Negative Urine Urobilinogen Normal Negative mg/dL Urine Leukocyte Esterase Negative Negative /uL Urine RBC 1 0 - 4 /hpf Urine WBC 1 0 - 5 /hpf Urine Squamous Epithelial Cells Few <5 /hpf Urine Bacteria Few H None Seen /hpf Urine Epithelial Casts None seen <5 /hpf Urine Glucose Normal Normal mg/dL SARS-CoV-2 Antigen (Rapid) Negative NEGATIVE Differential Total Cells Counted 100.0 100 Neutrophils % (Manual) 38 37.0-80.0 Band Neutrophils % (Manual) 1 Lymphocytes % (Manual) 53 H 10.0-50.0 Monocytes % (Manual) 6 0-12 Eosinophils % (Manual) 2 0-7 Basophils % (Manual) 0 0.0-2.0 Metamyelocytes % (manual) 0 Myelocytes % (Manual) 0 Promyelocytes % (Manual) 0 Blast Cells % (Manual) 0 Reactive Lymphocytes 0 Smudge Cells 1 /100 WBC Platelet Estimate Adequate Giant Platelets Few Test 01/31/23 16:20 Range/Units Urine Mucus Few None Seen Urine Test Negative Negative Microbiology Date/Time Source Procedure Growth Status 01/31/23 00:00 Voided Urine Urine Culture - Final Complete Primary Diagnosis Complicated urinary tract infection Admitting Diagnosis: Complicated UTI a. Failure to oral antibiotic's Bilateral pelvic pains Acute kidney injury Hypovolemia 2' Diagnosis/Comorbidities Chronic back pains Medical decision making Patient presents with symptoms of complicated urinary tract infection Bilateral pelvic pains and lower quadrant tenderness * Urine analysis supportive of complicated UTI which failed to respond to oral antibiotics as outpatient * Recommended urine and blood cultures * Recommended IV antibiotics * Electrolytes reflective of KEARA from state of hypovolemia * Recommended IV hydration * Plan Admit to medical floor Urine and blood cultures IV antibiotics Parenteral analgesics Reconcile home medication Monitor CBC electrolytes VTE precautions Code: Full The patient and/or family is well informed by me about 1. Clinical impression, treatment plans, side effects of medications, course of the disease And prognosis 2. All patient's and concerns raised by patient or family are satisfactorily addressed by me Total time spent 100 minutes 40% of time spent interviewing the patient and physical exam 30% of time spent in gathering lab datas and imaging studies 30 % of time is spent in patient education Plan discussed with: Patient Code Visit Code Visit Total Time (mins): 100 HOSSEIN GARCIA MD Jan 31, 2023 19:47 TRANSCRIBED BY:HOSSEIN GARCIA MD TRANSCRIBED DATE/TIME:01/31/23 194 ELECTRONICALLY SIGNED BY:HOSSEIN GARCIA MD 08/13/23 1014 ELECTRONICALLY CO-SIGNED BY: History of Present Illness 54-year-old middle-aged -[place] female with known history of Hypertension, chronic back pains currently on narcotic analgesics Presented tcolicky crampy pelvic pains at level of 7 out of 10 at times referring to Q [facility] with severe RLQ abdominal/pelvic pains patient denies fever chills, flank pain vomiting. Denies febrile illness but chills. Denies purulent discharge from genitalia Denies history of PID. admits being sexually active. Upon arrival to ER, patient received CT abdomen/pelvis evaluation There was no acute inflammatory conditions of the pelvic organs noted. On other hand, etiologic causes of her severe pains were thought to be from radiolucent nephrolithiasis, UTI. Following to my case discussion with ER physician, patient was admitted to medical floor for further evaluation Patient Family History: Patient reports no known family medical history. Allergies: Coded Allergies: Ketorolac Tromethamine (Verified Allergy, Unknown, 01/31/23) PATIENT REPORTS "JITTERNESS" Home Meds Active Scripts Cefuroxime Axetil (Cefuroxime Axetil) 500 Mg Tab, 500 MG PO BID for 7 Days, #14 TAB Prov:HOSSEIN GARCIA MD 11/01/23 Meclizine Hcl (Meclizine Hcl) 25 Mg Tab, 25 MG PO Q8HPRN PRN for 15 Days, #50 TAB Prov:HOSSEIN GARCIA MD 11/01/23 Amlodipine Besylate (NORVASC TABLET) 5 Mg Tb, 5 MG PO DAILY for 90 Days, #90 TAB Prov:HOSSEIN GARCIA MD 11/01/23 Valsartan (Valsartan) 80 Mg Tab, 160 MG PO BID@0700,1800 for 90 Days, #180 TAB Hold if systolic BP <110 Report to PMD if persistent dry cough or angioedema of lips Prov:HOSSEIN GARCIA MD 11/01/23 Reported Medications Aspirin (Aspirin Low Dose) 81 Mg Tab, 1 TAB PO 10/29/23 Docusate Sodium (Docusate Sodium) 100 Mg Cap, 1 CAP PO QHSP PRN for FOR CONSTIPATION 10/29/23 Rosuvastatin Calcium (Rosuvastatin Calcium) 20 Mg Tab, 1 TAB PO 10/29/23 Hydrocodone-Acetaminophen (Hydrocodone Bitartrate/AC 10-325 mg) 1 Tab Tab 10/29/23 Vital Signs Vital Signs Date Time Temp Pulse Resp B/P (MAP) Pulse Ox O2 Delivery O2 Flow Rate FiO2 10/08/24 21:00 98.0 51 13 133/74 (93) 96 98.0 10/08/24 20:00 Room Air* 0 21 Results Labs Test 10/08/24 11:15 10/07/24 06:58 10/06/24 07:16 10/06/24 06:58 Range/Units White Blood Count 5.4 4.4-10.8 10^3/uL Red Blood Count 4.60 4.0-5.20 10^6/uL Hemoglobin 14.1 12.2-16.2 g/dL Hematocrit 40.5 36.0-46.0 % Mean Corpuscular Volume 88.1 80.0-100.0 fL Mean Corpuscular Hemoglobin 30.6 28.0-32.0 pg Mean Corpuscular Hemoglobin Concent 34.7 32.0-36.0 g/dL Red Cell Distribution Width 13.1 11.8-14.3 % Platelet Count 220 140-450 10^3/uL Mean Platelet Volume 7.8 6.9-10.8 fL Neutrophils (%) (Auto) 39.9 37.0-80.0 % Lymphocytes (%) (Auto) 50.3 H 10.0-50.0 % Monocytes (%) (Auto) 7.3 0.0-12.0 % Eosinophils (%) (Auto) 2.2 0.0-7.0 % Basophils (%) (Auto) 0.3 0.0-2.0 % Neutrophils # (Auto) 2.2 1.6-8.6 10 ^3/uL Lymphocytes # (Auto) 2.7 0.4-5.4 10 ^3/uL Monocytes # (Auto) 0.4 0-1.3 10 ^3/uL Eosinophils # (Auto) 0.1 0-0.8 10 ^3/uL Basophils # (Auto) 0 0-0.2 10 ^3/uL Nucleated Red Blood Cells 0.1 % Sodium Level 141 136-145 mmol/L Potassium Level 3.8 3.5-5.1 mmol/L Chloride Level 106 98-107 mmol/L Carbon Dioxide Level 26 20-31 mmol/L Anion Gap 9 5-15 Blood Urea Nitrogen 8 L 9-23 mg/dL Creatinine 0.63 # 0.550-1.02 mg/dL Glomerular Filtration Rate Calc 106 >90 mL/min BUN/Creatinine Ratio 12.7 10.0-20.0 Serum Glucose 112 H 74-106 mg/dL Calcium Level 9.9 8.7-10.4 mg/dL Total Bilirubin 1.3 H 0.2-1.0 mg/dL Aspartate Amino Transferase (AST) 13 13-40 U/L Alanine Aminotransferase (ALT) 42 H 7-40 U/L Alkaline Phosphatase 71 46-116 U/L Total Protein 6.9 5.7-8.2 g/dL Albumin 4.4 3.2-4.8 g/dL Lipase 29 12-53 U/L Differential Total Cells Counted 100.0 100 Neutrophils % (Manual) 27 L 37.0-80.0 Band Neutrophils % (Manual) 0 Lymphocytes % (Manual) 68 H 10.0-50.0 Monocytes % (Manual) 3 0-12 Eosinophils % (Manual) 2 0-7 Basophils % (Manual) 0 0.0-2.0 Metamyelocytes % (manual) 0 Myelocytes % (Manual) 0 Promyelocytes % (Manual) 0 Blast Cells % (Manual) 0 Reactive Lymphocytes 0 Platelet Estimate Adequate Phosphorus Level 3.0 2.4-5.1 mg/dL Magnesium Level 2.3 1.6-2.6 mg/dL Urine Color Yellow Yellow Urine Clarity Turbid H Clear Urine pH 5.5 5.0-9.0 Urine Specific [place] 1.028 1.001-1.035 Urine Protein Negative Negative Urine Ketones Negative Negative Urine Blood Negative Negative /uL Urine Nitrite Negative Negative Urine Bilirubin Negative Negative Urine Urobilinogen 2 H Negative mg/dL Urine Leukocyte Esterase Negative Negative /uL Urine RBC 7 0 - 4 /hpf Urine WBC 1 0 - 5 /hpf Urine Squamous Epithelial Cells Few <5 /hpf Urine Bacteria None seen None Seen /hpf Urine Glucose Normal Normal mg/dL Microbiology Date/Time Source Procedure Growth Status 10/06/24 06:58 Voided Urine Urine Culture - Final Complete HOSSEIN GARCIA MD Oct 08, 2024 23:54
--- NOTE | 2024-10-08 23:55 | DVHPN2 ---
Progress Note - Dictate Date Seen: Oct 08, 2024 vital signs Vital Sign Date Time Temp Pulse Resp B/P (MAP) Pulse Ox O2 Delivery O2 Flow Rate FiO2 10/08/24 21:00 98.0 51 13 133/74 (93) 96 98.0 10/08/24 20:00 Room Air* 0 21 Total Intake and Output 10/07/24 10/07/24 10/08/24 15:00 23:00 07:00 Intake Total 50 ml 1100 ml 800 ml Balance 50 ml 1100 ml 800 ml medications Current Medications Medications Dose Ordered Sig/Krupa Route Start Time Stop Time Status Last Admin Dose Admin Nitroglycerin 0.4 mg Q5MINP PRN SL 10/06/24 10:45 Morphine Sulfate 2 mg Q30M PRN IV 10/06/24 10:45 Amlodipine Besylate 5 mg DAILY PO 10/07/24 10:00 10/08/24 10:00 Aspirin 81 mg DAILY@DINNER PO 10/06/24 17:30 10/08/24 17:30 Docusate Sodium 100 mg QHSP PRN PO 10/06/24 10:45 Valsartan 160 mg BID@0700,1800 PO 10/06/24 18:00 10/08/24 18:00 Pantoprazole Sodium 40 mg DAILY IV 10/07/24 10:00 10/08/24 10:00 Cefepime HCl 50 ml @ 12.5 mls/hr Q8HR IV 10/07/24 00:00 10/07/24 21:45 Metronidazole 100 ml @ 100 mls/hr Q8HR IV 10/07/24 00:00 10/08/24 13:44 Hydromorphone HCl 0.4 mg Q4HP PRN IV 10/07/24 18:45 10/08/24 18:53 Hydromorphone HCl 0.6 mg Q4HP PRN IV 10/07/24 18:45 10/07/24 19:04 Ondansetron HCl 4 mg Q6HPRN PRN IV 10/07/24 18:45 10/08/24 18:52 Acetaminophen/ Hydrocodone Bitart 1 tab Q6HP PRN PO 10/07/24 18:45 10/08/24 22:18 laboratory and microbiology Laboratory Tests 10/07/24 06:58 Test 10/07/24 06:58 Range/Units Serum Glucose 112 H 74-106 mg/dL HOSSEIN GARCIA MD Oct 08, 2024 23:55
[2024-10-09 01:00] VITALS: BP 144/96; PULSE 53; RESP 12; TEMP 97.4; O2SAT 96
[2024-10-09 05:00] VITALS: BP 110/78; PULSE 50; RESP 12; TEMP 97.8; O2SAT 98
[2024-10-09 09:28] VITALS: BP 113/78; PULSE 56; RESP 16; TEMP 97.8; O2SAT 97
[2024-10-10 18:06] LABS: Chlamydia Trachomatis, NAA Negative (Negative); Neisseria gonorrhoeae, NAA Negative (Negative)
== END 2024-10-09 08:30 | disposition left against medical advice (07) | DRG 392 ==
LOC: ER 06:45 → OVERFLOW 10:42 → WEST WING 15:31
PROVIDERS: ADMIT Specialist; ATTEND Specialist
DX: K52.9 Noninfective gastroenteritis and colitis, unspecified (principal); N39.0 Urinary tract infection, site not specified; N17.9 Acute kidney failure, unspecified; I10 Essential (primary) hypertension; E78.5 Hyperlipidemia, unspecified; Z53.29 Procedure and treatment not carried out because of patient's decision for other reasons; K76.0 Fatty (change of) liver, not elsewhere classified; D25.9 Leiomyoma of uterus, unspecified; E86.1 Hypovolemia; G89.29 Other chronic pain; Z87.891 Personal history of nicotine dependence; Z79.899 Other long term (current) drug therapy; Z79.82 Long term (current) use of aspirin
CPT/HCPCS: 36415; 74176; 76700; 76830; 76856; 80048; 80053; 81001; 83690; 83735; 84100; 85007; 85025; 85027; 87086; G0378; J2405; J2470; J3490

== ENCOUNTER 2024-10-18 11:35 | Emergency (ER) | payer BC, MEDICAID ==
[~2024-10-18] VITALS: Ht 167.6 cm; Wt 74.7 kg
--- NOTE | 2024-10-18 12:26 | DVH ---
CHEST RADIOGRAPH Indication: flu Technique: Single frontal view of the chest was obtained COMPARISON: XY CHEST XRAY 1 VIEW on DOS: 10/30/23, XY CHEST PORTABLE on DOS: 01/31/23 FINDINGS: Lines and Tubes: None Lungs: Clear Pleura: No effusion. No pneumothorax. Cardiomediastinal contours: Unremarkable Bones: Unremarkable IMPRESSION: No acute disease.
[2024-10-18 13:07] VITALS: BP 106/66; PULSE 88; RESP 16; TEMP 99.6; O2SAT 96
--- NOTE | 2024-10-18 14:25 | ED.PDOC ---
History of Present Illness HPI Comments Presents for body aches, cough, headache Chief Complaint: Flu like Time Seen by MD: 12:05 Past Medical History PAST MEDICAL HISTORY: HTN Surgical History: Denies all surgeries MOTOR TESTER History: No Pertinent MOTOR TESTER History Family History Family History: Reviewed,noncontributory to illness, No family hx of Cancer, No family hx of DM, No family hx of Heart jose cruz, No family hx of HTN, No family hx ofKidney jose cruz, No family hx of Liver jose cruz, No family hx of Lung jose cruz, No family hx of Stroke Social History Smoker: Non-Smoker Alcohol: Denies ETOH Use Drugs: Denies Drug Use Lives In: Home X-Ray, Labs, Meds, VS Vital Signs Date Time Temp Pulse Resp B/P (MAP) Pulse Ox O2 Delivery O2 Flow Rate FiO2 10/18/24 13:07 88 16 96 Room Air 10/18/24 13:07 99.6 88 16 106/66 (79) 96 99.6 10/18/24 11:52 99.6 88 16 106/66 (79) 96 Departure 1 Departure Time of Disposition: 14:27 Impression: Primary Impression: Viral syndrome Disposition: 01 HOME / SELF CARE / HOMELESS e-Prescriptions Ibuprofen Micronized (Ibuprofen) 800 Mg Tab 800 MG PO TIDPRN PRN for 10 Days, #30 TAB 0 Refills Prov: DAE BLOUNT NP 10/18/24 Acetaminophen (Acetaminophen) 500 Mg Tab 500 MG PO Q6HP PRN for 10 Days, #40 TAB 0 Refills Prov: DAE BLOUNT NP 10/18/24 Promethazine-Dm (Promethazine Hydrochlorid 6.25-15 mg/5Ml) 1 Mari Mari 5 ML PO TIDPRN PRN for 10 Days, #150 ML 0 Refills Prov: DAE BLOUNT NP 10/18/24 Azithromycin (Azithromycin) 250 Mg Tab 250 MG PO DAILY MDD 500 for 5 Days, #6 TAB 0 Refills 2 TABLETS ORALLY ON DAY ONE, THEN 1 TABLET ORALLY DAILY FOR 4 DAYS Prov: DAE BLOUNT NP 10/18/24 DAE BLOUNT NP Oct 18, 2024 14:25
[2024-10-18] MEDS ORDERED: IBUP-1455 PO (14:30)
[2024-10-18] MEDS ORDERED: ACET500T58 PO (14:30)
[2024-10-18] MEDS ORDERED: PROM1SOL2 PO (14:30)
[2024-10-18] MEDS ORDERED: AZIT-43 PO (14:30)
== END 2024-10-18 14:35 | disposition home or self-care (01) ==
LOC: ER 11:35
DX: B34.9 Viral infection, unspecified (principal); I10 Essential (primary) hypertension
CPT/HCPCS: 71045

== ENCOUNTER 2025-04-03 11:47 | Inpatient (IN) | payer BC, MEDICAID ==
[~2025-04-03] VITALS: Ht 167.6 cm; Wt 77.0 kg
[~2025-04-03 11:47] MED LIST changes: +ACET500T58 PO; +AZIT-43 PO; +IBUP-1455 PO; +PROM1SOL2 PO
[2025-04-03 12:27] VITALS: PULSE 59; RESP 12; O2SAT 96
--- NOTE | 2025-04-03 12:27 | ECG ---
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
[2025-04-03] MEDS: SODIUM CHLORIDE 0.9% 1,000 ML IV ONE (12:38)
[2025-04-03] MEDS: ONDANSETRON HCL 4 MG/2 ML VIAL IV ONE (12:38)
--- NOTE | 2025-04-03 12:38 | ED.PDOC ---
Altered Mental Status HPI Comments 54 y.o female with PMHx of HTN, presents to the ED via EMS for an evaluation of a syncopal episode today. Patient reports running errands today, went to eat at a restaurant and while awaiting for her food, became lightheaded/dizzy and called out for help. Patient reports no LOC but felt faint, weak, nauseous, and experiencing hot flashes. Patient mentions no food prior to running errands. Patient on scene was hypotensive and received 500mL NS IV. Patient at bed side had a blood pressure of 96/57 and heart rate ranging from 46-55. Patient denies history of bradycardia. At bedside, patient denies any dizziness but states she still feels weak. No other symptoms or pain reported. Chief Complaint: Syncope Time Seen by MD: 12:19 Primary Care Provider: JOSE Reviewed Notes: Nurses Notes, Hands Assembler Notes, Medications, Allergies Allergies: Coded Allergies: Ketorolac Tromethamine (Verified Allergy, Unknown, 01/31/23) PATIENT REPORTS "JITTERNESS" Sumatriptan (Verified Allergy, Unknown, 10/18/24) Home Meds Active Scripts Ibuprofen Micronized (Ibuprofen) 800 Mg Tab, 800 MG PO TIDPRN PRN for 10 Days, #30 TAB 0 Refills Prov:DAE BLOUNT NP 10/18/24 Acetaminophen (Acetaminophen) 500 Mg Tab, 500 MG PO Q6HP PRN for 10 Days, #40 TAB 0 Refills Prov:DAE BLOUNT SCIENCE CONSULTANT 10/18/24 Meclizine Hcl (Meclizine Hcl) 25 Mg Tab, 25 MG PO Q8HPRN PRN for 15 Days, #50 TAB Prov:HOSSEIN BUSTOS MD 11/01/23 Amlodipine Besylate (NORVASC TABLET) 5 Mg Tb, 5 MG PO DAILY for 90 Days, #90 TAB Prov:HOSSEIN BUSTOS MD 11/01/23 Valsartan (Valsartan) 80 Mg Tab, 160 MG PO BID@0700,1800 for 90 Days, #180 TAB Hold if systolic BP <110 Report to PMD if persistent dry cough or angioedema of lips Prov:HOSSEIN BUSTOS MD 11/01/23 Reported Medications Aspirin (Aspirin Low Dose) 81 Mg Tab, 1 TAB PO 10/29/23 Docusate Sodium (Docusate Sodium) 100 Mg Cap, 1 CAP PO QHSP PRN for FOR CONSTIPATION 10/29/23 Rosuvastatin Calcium (Rosuvastatin Calcium) 20 Mg Tab, 1 TAB PO 10/29/23 Hydrocodone-Acetaminophen (Hydrocodone Bitartrate/AC 10-325 mg) 1 Tab Tab 10/29/23 Discontinued Scripts Promethazine-Dm (Promethazine Hydrochlorid 6.25-15 mg/5Ml) 1 Mari Mari, 5 ML PO TIDPRN PRN for 10 Days, #150 ML 0 Refills Prov:DAE BLOUNT NP 10/18/24 Azithromycin (Azithromycin) 250 Mg Tab, 250 MG PO DAILY MDD 500 for 5 Days, #6 TAB 0 Refills 2 TABLETS ORALLY ON DAY ONE, THEN 1 TABLET ORALLY DAILY FOR 4 DAYS Prov:DAE BLOUNT NP 10/18/24 Cefuroxime Axetil (Cefuroxime Axetil) 500 Mg Tab, 500 MG PO BID for 7 Days, #14 TAB Prov:HOSSEIN BUSTOS MD 11/01/23 Information Source: Patient Mode of Arrival: EMS Severity: Moderate Timing: Hours Duration: Since onset Quality: Decreased Alertness Recent: Nausea Associated Signs and Symptoms: Other Past Medical History PAST MEDICAL HISTORY: HTN Past Medical History (Other): chronic back pain Surgical History: Denies all surgeries CROZE CUTTER History: No Pertinent CROZE CUTTER History Family History Family History: Reviewed,noncontributory to illness, No family hx of Cancer, No family hx of DM, No family hx of Heart jose cruz, No family hx of HTN, No family hx ofKidney jose cruz, No family hx of Liver jose cruz, No family hx of Lung jose cruz, No family hx of Stroke Social History Smoker: Non-Smoker Alcohol: Denies ETOH Use Drugs: Denies Drug Use Lives In: Home Constitutional: denies: chills, diaphoresis, fatigue, fever, malaise, sweats, weakness, others EENTM: denies: blurred vision, double vision, ear bleeding, ear discharge, ear drainage, ear pain, ear ringing, eye pain, eye redness, hearing loss, mouth pain, mouth swelling, nasal discharge, nose bleeding, nose congestion, nose pain, photophobia, tearing, throat pain, throat swelling, voice changes, others Respiratory: denies: cough, hemoptysis, orthopnea, SOB at rest, shortness of breath, SOB with excertion, stridor, wheezing, others Cardiovascular: reports: lightheadedness, syncope; denies: chest pain, dizzy spells, diaphoresis, Dyspnea on exertion, edema, irregular heart beat, left arm pain, palpitations, PND, others Gastrointestinal: reports: nausea; denies: abdomen distended, abdominal pain, blood streaked bowels, constipated, diarrhea, dysphagia, difficulty swallowing, hematemesis, melena, poor appetite, poor fluid intake, rectal bleeding, rectal pain, vomiting, others Genitourinary: denies: abnormal vagina bleeding, burning, dyspareunia, dysuria, flank pain, frequency, hematuria, incontinence, pain, , vagina discharge, urgency, others Neurological: reports: dizziness; denies: fainting, headache, left sided numbness, left sided weakness, numbness, paresthesia, pre-existing deficit, right sided numbness, right sided weakness, seizure, speech problems, tingling, tremors, weakness, others Musculoskeletal: denies: back pain, gout, joint pain, joint swelling, muscle pain, muscle stiffness, neck pain, others Integumetry: denies: bruises, change in color, change in hair/nails, dryness, laceration, lesions, lumps, rash, wounds, others Allergic/Immunocompromised: denies: Difficulty Healing, Frequent Infections, H lobito, Itching, others Hematologic/Lymphatic: denies: anemia, blood clots, easy bleeding, easy bruising, swollen glands, others Endocrine: denies: excessive hunger, excessive sweating, excessive thirst, excessive urination, flushing, intolerance to cold, intolerance to heat, unexplained weight gain, unexplained weight loss, others Psychiatric: denies: anxiety, bipolar disorder, depression, hopeless, panic disorder, schizophrenia, sleepless, suicidal, others All Other Systems: Reviewed and Negative Physical Exam General Appearance: No Apparent Distress, Obese HEENT: PERRL/EOMI, Other (Pupils EN face symmetric. Moist mucous membranes.) Neck: Full Range of Motion, Non-Tender, Normal Inspection, Supple Respiratory: Lungs Clear, No Accessory Muscle Use, No Respiratory Distress, Normal Breath Sounds Cardiovascular: Bradycardia, No Edema, No JVD Breast Exam: Deferred Gastrointestinal: Non Tender, Soft Genitalia: Deferred Pelvic: Deferred Rectal: Deferred Extremities: Normal inspection, Normal range of motion, Non-tender, No pedal edema Neurologic: Alert (Oriented x4), Normal Affect, Normal Mood, Other (Ambulatory. No gross focal deficit.) Cerebellar Function: NOT DONE Reflexes: NOT DONE Skin: Dry, Normal Color, Warm Lymphatic: NOT DONE EKG EKG : Comments Sinus bradycardia, rate 53, normal intervals, normal axis, normal QRS, nonspecific T change. Was a procedure done? Was a procedure done?: No Differential Diagnosis (ALOC) Differential Diagnosis: Dehydration, Hypoglycemia, Hypoxemia, Seizure, CVA, Mass Lesion, Heart Failure, Other (Arrhythmia, LA, among others) Other Differential Diagnosis Hypovolemia/dehydration, Bradycardia X-Ray, Labs, Meds, VS Vital Signs Date Time Temp Pulse Resp B/P (MAP) Pulse Ox O2 Delivery O2 Flow Rate FiO2 04/03/25 12:39 97.9 67 17 96/57 (70) 94 97.9 04/03/25 12:30 47 04/03/25 12:27 59 12 96 Room Air* 0 21 04/03/25 12:05 53 04/03/25 11:52 97.9 62 16 103/63 (76) 97 97.9 Lab Test 04/03/25 12:58 04/03/25 12:18 Range/Units White Blood Count 5.0 4.4-10.8 10^3/uL Red Blood Count 4.41 4.0-5.20 10^6/uL Hemoglobin 13.3 12.2-16.2 g/dL Hematocrit 38.5 36.0-46.0 % Mean Corpuscular Volume 87.3 80.0-100.0 fL Mean Corpuscular Hemoglobin 30.3 28.0-32.0 pg Mean Corpuscular Hemoglobin Concent 34.7 32.0-36.0 g/dL Red Cell Distribution Width 13.4 11.8-14.3 % Platelet Count 245 140-450 10^3/uL Mean Platelet Volume 7.8 6.9-10.8 fL Neutrophils (%) (Auto) 44.7 37.0-80.0 % Lymphocytes (%) (Auto) 48.6 10.0-50.0 % Monocytes (%) (Auto) 5.4 0.0-12.0 % Eosinophils (%) (Auto) 1.0 0.0-7.0 % Basophils (%) (Auto) 0.3 0.0-2.0 % Neutrophils # (Auto) 2.3 1.6-8.6 10 ^3/uL Lymphocytes # (Auto) 2.4 0.4-5.4 10 ^3/uL Monocytes # (Auto) 0.3 0-1.3 10 ^3/uL Eosinophils # (Auto) 0.1 0-0.8 10 ^3/uL Basophils # (Auto) 0 0-0.2 10 ^3/uL Nucleated Red Blood Cells 0.1 % Sodium Level 143 136-145 mmol/L Potassium Level 4.3 3.5-5.1 mmol/L Chloride Level 108 H 98-107 mmol/L Carbon Dioxide Level 28 20-31 mmol/L Anion Gap 7 5-15 Blood Urea Nitrogen 16 9-23 mg/dL Creatinine 1.04 H 0.550-1.02 mg/dL Glomerular Filtration Rate Calc 64 >90 mL/min BUN/Creatinine Ratio 15.4 10.0-20.0 Serum Glucose 124 H 74-106 mg/dL Calcium Level 9.7 8.7-10.4 mg/dL Troponin I High Sensitivity 9 </=34 ng/L B-Type Natriuretic Peptide 31.50 0-100 pg/mL Urine Color Light-yellow Yellow Urine Clarity Clear Clear Urine pH 5.5 5.0-9.0 Urine Specific [place] 1.010 1.001-1.035 Urine Protein Negative Negative Urine Ketones Negative Negative Urine Blood Negative Negative /uL Urine Nitrite Negative Negative Urine Bilirubin Negative Negative Urine Urobilinogen Normal Negative mg/dL Urine Leukocyte Esterase Negative Negative /uL Urine RBC 1 0 - 4 /hpf Urine Microscopic WBC 1 0-5 /HPF Urine Squamous Epithelial Cells Few <5 /hpf Urine Bacteria Few H None Seen /hpf Urine Mucus Few None Seen Urine Glucose Normal Normal mg/dL Urine Test Negative Negative Current Medications Medications (Trade) Dose Ordered Sig/Krupa Route Start Time Stop Time Status Last Admin Sodium Chloride 1,000 ml @ 1,000 mls/hr Q1H ONCE IV 04/03/25 12:30 04/03/25 13:29 DC 04/03/25 12:38 PROCEDURE(s): HWOCT - HEAD WITHOUT CONTRAST REASON: syncope ORDER NUMBER(s): [id number], ACCESSION NUMBER(s): [id number] CT HEAD WITHOUT CONTRAST INDICATION: syncope EXAM DATE: 04/03/2025 01:19 PM COMPARISON: None RADIATION DOSE: CTDIvol: 51.01 mGy, DLP: 817.88 mGy*cm PROCEDURE: CT scans of the head were obtained from the vertex to the skull base. Sagittal and coronal reconstructions were provided. All CT scans at this medical facility are performed using dose modulation techniques as appropriate to a performed exam including the following: Automated exposure control was utilized; adjustment of the MA and/or KV according to patient size; and use of iterative reconstruction technique. FINDINGS: There is sulcal and ventricular prominence. The brainshows normal morphology and green-white matter differentiation, without intracranial hemorrh age, extra-axial fluid collection, mass effect or acute large vessel infarct. The ventricles are normal in size. The basal cisterns are patent. The skull and visible facial bones are intact. The paranasal sinuses, mastoid air cells and middle ear cavities are well-aerated. The soft tissues of the scalp are unremarkable. IMPRESSION: No acute intracranial abnormality. EDURE(s): CXRP - CHEST PORTABLE REASON: syncope bradycardia ORDER NUMBER(s): [id number], ACCESSION NUMBER(s): [id number] INDICATION: syncope bradycardia TECHNIQUE: Frontal view of the chest. COMPARISON: XY CHEST XRAY 1 VIEW on DOS: 10/18/24, XY CHEST XRAY 1 VIEW on DOS: 10/30/23, XY CHEST PORTABLE on DOS: 01/31/23 FINDINGS: . The heart and mediastinal contours are grossly unremarkable. There is no evidence of pleural disease. The lungs are clear. The bony structures of the chest are intact without fracture. IMPRESSION: 1. No evidence of acute disease. X-Ray, Labs, Meds, VS Comment 54-year-old female with a history of hypertension brought in by EMS after a syncopal episode associated with nausea and vomiting Vitals remarkable for heart rate as low as 47 Exam remarkable for bradycardia Rhythm strip independently interpreted by me: Sinus bradycardia, rate 53, no ectopy. CT head and chest x-ray unremarkable CBC, basic metabolic panel, BNP, UA and serial troponins essentially unremarkable for any abnormality of acute significance Patient treated with the following in the ED: 1 L 0.9 normal saline IV bolus, Zofran 4 mg IV On re-evaluation, heart rate is 47, blood pressure is 94/48, patient is asymptomatic while lying in the gurney. Plan is to admit the patient for Cardiology evaluation. Case discussed with Dr. Bustos, who will admit the patient. Time of 1ST Reevaluation: 12:31 Reevaluation 1ST: Improved Patient Education/Counseling: Diagnosis, Treatment, Prognosis Family Education/Counseling: No Family Present Departure 1 Departure Time of Disposition: 13:18 Impression: Primary Impression: Syncope Qualified Codes: R55 - Syncope and collapse Additional Impression: Bradycardia Disposition: ADMITTED INPATIENT Admit to: [facility] Condition: Guarded Critical Care Note Critical Care Time?: No Stability Stability form required: No Heart Score Heart Score: Heart Score Response (Comments) Value History N/A 0 EKG N/A 0 Age N/A 0 Risk Factors N/A 0 Troponin N/A 0 Total 0 I personally scribed for SHILA LOPEZ MD ([email or web address]) on 04/03/25 at 12:38. Electronically submitted by Jazmín Freeman ([facility]). SHILA LOPEZ MD Apr 03, 2025 12:38
[2025-04-03 13:21] LABS: Basophils # (auto) 0 10 ^3/uL (0-0.2); Basophils % (auto) 0.3 % (0.0-2.0); Eosinophils # (auto) 0.1 10 ^3/uL (0-0.8); Hematocrit 38.5 % (36.0-46.0); Hemoglobin 13.3 g/dL (12.2-16.2); Lymphocytes # (auto) 2.4 10 ^3/uL (0.4-5.4); Lymphocytes % (auto) 48.6 % (10.0-50.0); Mean Corpuscular Hemoglobin 30.3 pg (28.0-32.0); Mean Corpuscular Hgb Conc. 34.7 g/dL (32.0-36.0); Mean Corpuscular Volume 87.3 fL (80.0-100.0); Monocytes # (auto) 0.3 10 ^3/uL (0-1.3); Monocytes % (auto) 5.4 % (0.0-12.0); Neutrophils # (auto) 2.3 10 ^3/uL (1.6-8.6); Neutrophils % (auto) 44.7 % (37.0-80.0); Nucleated Red Blood Cells % 0.1 %; Platelet Count (auto) 245 10^3/uL (140-450); Red Blood Cells 4.41 10^6/uL (4.0-5.20); Red Cell Distribution Width 13.4 % (11.8-14.3)
[2025-04-03 13:30] LABS: Potassium 4.3 mmol/L (3.5-5.1); Sodium 143 mmol/L (136-145)
[2025-04-03] MEDS ORDERED: MECLIZINE HCL 25 MG TAB PO PRN (13:30)
[2025-04-03] MEDS ORDERED: ACETAMINOPHEN 500 MG TAB or CAP PO PRN (13:30)
[2025-04-03] MEDS ORDERED: DOCUSATE SOD 100 MG CAP PO PRN (13:30)
[2025-04-03] MEDS ORDERED: IBUPROFEN 800 MG TAB PO PRN (13:30)
[2025-04-03] MEDS ORDERED: MORPHINE SULFATE INJ 2 MG/ml SYRG IV PRN (13:30)
[2025-04-03] MEDS ORDERED: NITROGLYCERIN 0.4 MG SL TAB SL PRN (13:30)
--- NOTE | 2025-04-03 13:30 | DVHHP2 ---
Admitting Diagnosis: Patient Family History: Patient reports no known family medical history. Allergies: Coded Allergies: Ketorolac Tromethamine (Verified Allergy, Unknown, 01/31/23) PATIENT REPORTS "JITTERNESS" Sumatriptan (Verified Allergy, Unknown, 10/18/24) Home Meds Active Scripts Ibuprofen Micronized (Ibuprofen) 800 Mg Tab, 800 MG PO TIDPRN PRN for 10 Days, #30 TAB 0 Refills Prov:DAE BLOUNT NP 10/18/24 Acetaminophen (Acetaminophen) 500 Mg Tab, 500 MG PO Q6HP PRN for 10 Days, #40 TAB 0 Refills Prov:DAE BLOUNT NP 10/18/24 Promethazine-Dm (Promethazine Hydrochlorid 6.25-15 mg/5Ml) 1 Mari Mari, 5 ML PO T IDPRN PRN for 10 Days, #150 ML 0 Refills Prov:DAE BLOUNT NP 10/18/24 Azithromycin (Azithromycin) 250 Mg Tab, 250 MG PO DAILY MDD 500 for 5 Days, #6 TAB 0 Refills 2 TABLETS ORALLY ON DAY ONE, THEN 1 TABLET ORALLY DAILY FOR 4 DAYS Prov:DAE BLOUNT NP 10/18/24 Cefuroxime Axetil (Cefuroxime Axetil) 500 Mg Tab, 500 MG PO BID for 7 Days, #14 TAB Prov:HOSSEIN GARCIA MD 11/01/23 Meclizine Hcl (Meclizine Hcl) 25 Mg Tab, 25 MG PO Q8HPRN PRN for 15 Days, #50 TAB Prov:HOSSEIN GARCIA MD 11/01/23 Amlodipine Besylate (NORVASC TABLET) 5 Mg Tb, 5 MG PO DAILY for 90 Days, #90 TAB Prov:HOSSEIN GARCIA MD 11/01/23 Valsartan (Valsartan) 80 Mg Tab, 160 MG PO BID@0700,1800 for 90 Days, #180 TAB Hold if systolic BP <110 Report to PMD if persistent dry cough or angioedema of lips Prov:HOSSEIN GARCIA MD 11/01/23 Reported Medications Aspirin (Aspirin Low Dose) 81 Mg Tab, 1 TAB PO 10/29/23 Docusate Sodium (Docusate Sodium) 100 Mg Cap, 1 CAP PO QHSP PRN for FOR CONSTIPATION 10/29/23 Rosuvastatin Calcium (Rosuvastatin Calcium) 20 Mg Tab, 1 TAB PO 10/29/23 Hydrocodone-Acetaminophen (Hydrocodone Bitartrate/AC 10-325 mg) 1 Tab Tab 10/29/23 Review of Systems Constitutional: Denies easy tiredness, denies fever chills weight loss HEENT: Denies headache/conjunctival/ENT pains or congestion, Denies hoarse voice, hearing or visual deficit Neck: Denies cervical spine local/radicular pains, denies goiters /stridor Denies stiffness spasms, reduced ROM, RS: Denies chest congestion, cough, wheezing, SOB, pleuritic chest pains CVS: Denies angina, palpitation, SOB, edema, orthopnea, PND GI: Reports loss of appetite, abdominal pains, tenderness, N/V Denies melena, GI bleeding,constipation, diarrhea : Reports pelvic pains dysuria, flank pains, frequency, hematuria, Denies passing foul odor/cloudy turbid urine, nocturia MS: Reports chronic back pains stiffness, denies generalized aches/pains, Denies radicular pains, denies generalized myalgias/muscle weakness EXTs: Denies edema, rash, open wounds, discoloration, radicular pains NEURO: Denies hypersomnolence, confused mental status, Denies focal weakness or seizures/tremors/myoclonic jerks SKIN: Denies rashes or open ulcerated wound ENDOCRINE: Denies polyuria, polydipsia, denies intolerance to heat and cold HEM/LYMPH: Denies easy tiredness, bruising, lymphadenopathy ALLERGY: Denies allergic reactions Psychiatry: Denies anxiety or depression disorder Otherwise the Review of Systems is Negative as per History & Physical Interview: Yes Vital Signs Vital Signs Date Time Temp Pulse Resp B/P (MAP) Pulse Ox O2 Delivery O2 Flow Rate FiO2 10/06/2024 12:00 141/98 (112) Sitting 10/06/2024 12:00 97.5 59 18 153/70 (97 Supine 90 21 10/06/2024 11:37 97.6 56 18 132/74 (93) 100 21 10/06/2024 7:43 97.6 68 18 133/90 (104) 98 21 History of Present Illness History of Present Illness 54-year-old middle-aged -[place] female with known history of hypertension Hypercholesterolemia, chronic back pains currently on narcotic analgesics presented to ER of this facility for sudden onset of R flank/RLQ abdominal pain colicky in nature at 05/04, radiating to mid pelvis suprapubic area attended with nausea, vomiting x 1 d Patient reports to have noticed turbid color urine with sandlike material-fears about Passing kidney stones. No known prior history of nephrolithiasis. She denies fever but chills, purulent discharge from genitalia Denies history of PID. admits being sexually active. Upon arrival to ER, patient appeared to be quite symptomatic for renal colic pains Generally weak from moderately severe hypovolemia complicated by orthostasis. Her urine analysis remarkable for highly concentrated with specific gravity 1025 Microscopic hematuria and possible urinary tract infection affecting bladder. Characteristics of her abdominal pains, she is suspected to have ureterovesical Colic. Following to my case discussion with Dr. Lua, consensus was to Hospitalize the patient for IV hydration, IV antibiotics, and further evaluation of of pelvic pains Past Medical History Past Medical History Past medical history records: Reviewed Cardiovascular: Known history of hypertension x 5 years no CAD Recommended valsartan-at times noncompliance Respiratory: No known history of asthma COPD Gastrointestinal: No known history of peptic ulcer disease, GI bleeding Genitourinary: Urinary tract infection Endocrine: Exogenous obesity with BMI> 30 kg per m2 Hypercholesterolemia No history of diabetes Neurology: No history of CVA Musculoskeletal: Chronic back pains Hemato-oncology: No history of anemia Psychiatric: No history of depression or anxiety Past Surgical History Social History Past Surgical History Not contributory Social History , 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 Allergies: Coded Allergies: Ketorolac Tromethamine (Verified Allergy, Unknown, 01/31/23) PATIENT REPORTS "JITTERNESS" Sumatriptan (Verified Allergy, Unknown, 10/18/24) Home Meds Active Scripts Ibuprofen Micronized (Ibuprofen) 800 Mg Tab, 800 MG PO TIDPRN PRN for 10 Days, #30 TAB 0 Refills Prov:JOSE ALEJANDRO,DAE [place] [employer] DES[employer] 10/18/24 Acetaminophen (Acetaminophen) 500 Mg Tab, 500 MG PO Q6HP PRN for 10 Days, #40 TAB 0 Refills Prov:JOSE ALEJANDRODAE [place] [employer] DES[employer] 10/18/24 Meclizine Hcl (Meclizine Hcl) 25 Mg Tab, 25 MG PO Q8HPRN PRN for 15 Days, #50 TAB Prov:HOSSEIN GARCIA MD 11/01/23 Amlodipine Besylate (NORVASC TABLET) 5 Mg Tb, 5 MG PO DAILY for 90 Days, #90 TAB Prov:HOSSEIN GARCIA MD 11/01/23 Valsartan (Valsartan) 80 Mg Tab, 160 MG PO BID@0700,1800 for 90 Days, #180 TAB Hold if systolic BP <110 Report to PMD if persistent dry cough or angioedema of lips Prov:HOSSEIN GARCIA MD 11/01/23 Reported Medications Aspirin (Aspirin Low Dose) 81 Mg Tab, 1 TAB PO 10/29/23 Docusate Sodium (Docusate Sodium) 100 Mg Cap, 1 CAP PO QHSP PRN for FOR CONSTIPATION 10/29/23 Rosuvastatin Calcium (Rosuvastatin Calcium) 20 Mg Tab, 1 TAB PO 10/29/23 Hydrocodone-Acetaminophen (Hydrocodone Bitartrate/AC 10-325 mg) 1 Tab Tab 10/29/23 Discontinued Scripts Promethazine-Dm (Promethazine Hydrochlorid 6.25-15 mg/5Ml) 1 Mari Mari, 5 ML PO TIDPRN PRN for 10 Days, #150 ML 0 Refills Prov:JOSE ALEJANDRODAE NP 10/18/24 Azithromycin (Azithromycin) 250 Mg Tab, 250 MG PO DAILY MDD 500 for 5 Days, #6 TAB 0 Refills 2 TABLETS ORALLY ON DAY ONE, THEN 1 TABLET ORALLY DAILY FOR 4 DAYS Prov:DAE BLOUNT NP 10/18/24 Cefuroxime Axetil (Cefuroxime Axetil) 500 Mg Tab, 500 MG PO BID for 7 Days, #14 TAB Prov:HOSSEIN GARCIA MD 11/01/23 Review of Systems Review of Systems Constitutional: Denies easy tiredness, denies fever chills weight loss HEENT: Denies headache/conjunctival/ENT pains or congestion, Denies hoarse voice, hearing or visual deficit Neck: Denies cervical spine local/radicular pains, denies g oiters/stridor Denies stiffness spasms, reduced ROM, RS: Denies chest congestion, cough, wheezing, SOB, pleuritic chest pains CVS: Denies angina, palpitation, SOB, edema, orthopnea, PND GI: Reports loss of appetite, abdominal pains, tenderness, N/V Denies melena, GI bleeding,constipation, diarrhea : Reports pelvic pains dysuria, flank pains, frequency, hematuria, Denies passing foul odor/cloudy turbid urine, nocturia MS: Reports chronic back pains stiffness, denies generalized aches/pains, Denies radicular pains, denies generalized myalgias/muscle weakness EXTs: Denies edema, rash, open wounds, discoloration, radicular pains NEURO: Denies hypersomnolence, confused mental status, Denies focal weakness or seizures/tremors/myoclonic jerks SKIN: Denies rashes or open ulcerated wound ENDOCRINE: Denies polyuria, polydipsia, denies intolerance to heat and cold HEM/LYMPH: Denies easy tiredness, bruising, lymphadenopathy ALLERGY: Denies allergic reactions Psychiatry: Denies anxiety or depression disorder Otherwise the Review of Systems is Negative as per History & Physical Interview: Yes Vital Signs Vital Signs Date Time Temp Pulse Resp B/P (MAP) Pulse Ox O2 Delivery O2 Flow Rate FiO2 04/03/25 12:39 97.9 67 17 96/57 (70) 94 97.9 04/03/25 12:27 Room Air* 0 21 Physical Exam Physical Exam General appearance: Well-developed, well-nourished middle-aged AA female Appears in discomfort due to pelvic/flank pains Noted to be orthostatic, hypovolemic no respiratory distress Head: Normocephalic nontraumatic Eyes: Eyeball shrunken + 2 EOMI-nystagmus in ho rizontal gaze, MOHAMUD, sclera nonicteric, conjunctive-pale ENT: ENT no congestion NSL bilateral symmetrical, oral mucosa dry+2 Neck: Supple, carotid upstroke +2, trachea midline, JVD 3 cm C spine- Full ROM, No thyroid or lymph node enlargement No use of sternomastoid muscle Chest: Bilateral symmetrical expansions, No costochondral tenderness Breasts: Bilateral symmetrical, no mass, no nipple abnormality Lungs: clear breath sounds all over except reduced at bases CVS: PMI-1 cm medial to L MCL in fifth ICS , S1- S2 NSR no S3 GI: Abdomen soft, obese, bowel sounds normoactive Suprapubic tenderness-present, no rebound tenderness No mass or hepatosplenomegaly, no hernia , : Bilateral lumbosacral muscle tenderness present focal CVA tenderness-present Genitalia-within normal limits no purulent discharge SKIN: Turgor poor, color pale, no rash, no icterus, no open wounds No varicosity, no ulcers or wounds EXTs: No edema, color pink, no rash, no ecchymosis distal pulses +2 capillary refill > 2 seconds, no open wounds JOINTS: full range of motion BACK: Para lumbosacral spinal muscle tenderness, LYMPH NODES: No cervical, axillary or inguinal lymph nodes Neuro: Awake alert oriented 4, coherent, all cognitives- intact No pronator drift, no focal motor deficit, No focal sensory deficit, Romberg sign present, finger-nose dysmetria present, Cerebellar ataxia present DTR +2, gait steady Results Labs Test 04/03/25 12:58 Range/Units White Blood Count 5.0 4.4-10.8 10^3/uL Red Blood Count 4.41 4.0-5.20 10^6/uL Hemoglobin 13.3 12.2-16.2 g/dL Hematocrit 38.5 36.0-46.0 % Mean Corpuscular Volume 87.3 80.0-100.0 fL Mean Corpuscular Hemoglobin 30.3 28.0-32.0 pg Mean Corpuscular Hemoglobin Concent 34.7 32.0-36.0 g/dL Red Cell Distribution Width 13.4 11.8-14.3 % Platelet Count 245 140-450 10^3/uL Mean Platelet Volume 7.8 6.9-10.8 fL Neutrophils (%) (Auto) 44.7 37.0-80.0 % Lymphocytes (%) (Auto) 48.6 10.0-50.0 % Monocytes (%) (Auto) 5.4 0.0-12.0 % Eosinophils (%) (Auto) 1.0 0.0-7.0 % Basophils (%) (Auto) 0.3 0.0-2.0 % Neutrophils # (Auto) 2.3 1.6-8.6 10 ^3/uL Lymphocytes # (Auto) 2.4 0.4-5.4 10 ^3/uL Monocytes # (Auto) 0.3 0-1.3 10 ^3/uL Eosinophils # (Auto) 0.1 0-0.8 10 ^3/uL Basophils # (Auto) 0 0-0.2 10 ^3/uL Nucleated Red Blood Cells 0.1 % HOSSEIN GARCIA MD Apr 03, 2025 13:30
[2025-04-03 13:31] LABS: Anion Gap 7 (5-15); Calcium 9.7 mg/dL (8.7-10.4); Carbon Dioxide 28 mmol/L (20-31)
[2025-04-03 13:36] LABS: BUN/Creatinine Ratio 15.4 (10.0-20.0); Blood Urea Nitrogen 16 mg/dL (9-23)
[2025-04-03 13:37] LABS: Chloride 108 mmol/L (98-107); Glucose 124 mg/dL (74-106)
[2025-04-03] MEDS: ATORVASTATIN 20 MG TAB PO ONE (13:42)
--- NOTE | 2025-04-03 13:53 | DVH ---
CT HEAD WITHOUT CONTRAST INDICATION: syncope EXAM DATE: 04/03/2025 01:19 PM COMPARISON: None RADIATION DOSE: CTDIvol: 51.01 mGy, DLP: 817.88 mGy*cm PROCEDURE: CT scans of the head were obtained from the vertex to the skull base. Sagittal and coronal reconstructions were provided. All CT scans at this medical facility are performed using dose modulation techniques as appropriate t o a performed exam including the following: Automated exposure control was utilized; adjustment of th e MA and/or KV according to patient size; and use of iterative reconstruction technique. FINDINGS: There is sulcal and ventricular prominence. The brainshows normal morphology and green-whi te matter differentiation, without intracranial hemorrhage, extra-axial fluid collection, mass effect or acute large vessel infarct. The ventricles are normal in size. The basal cisterns are patent. The skull and visible facial bones are intact. The paranasal sinuses, mastoid air cells and middle ear c avities are well-aerated. The soft tissues of the scalp are unremarkable. IMPRESSION: No acute intracranial abnormality.
[2025-04-03] MEDS: HYDROcodone-ACET 10/325MG TAB PO PRN (13:56)
[2025-04-03 14:25] LABS: Urine Bacteria FEW /hpf (None Seen); Urine Blood Negative /uL (Negative); Urine Clarity Clear (Clear); Urine Color Light-Yellow (Yellow); Urine Mucus FEW (None Seen); Urine Protein, UAD Negative (Negative); Urine Squamous Epithelial Cell FEW /hpf (<5); Urine Urobilinogen Normal (Negative); Urine WBC 1 /HPF (0-5); Urine pH 5.5 (5.0-9.0)
--- NOTE | 2025-04-03 14:50 | DVH ---
INDICATION: syncope bradycardia TECHNIQUE: Frontal view of the chest. COMPARISON: XY CHEST XRAY 1 VIEW on DOS: 10/18/24, XY CHEST XRAY 1 VIEW on DOS: 10/30/23, XY CHEST PORT ABLE on DOS: 01/31/23 FINDINGS: . The heart and mediastinal contours are grossly unremarkable. There is no evidence of pleural disea se. The lungs are clear. The bony structures of the chest are intact without fracture. IMPRESSION: 1. No evidence of acute disease.
[2025-04-03] MEDS: VALSARTAN 80 MG TAB PO SCH (18:00)
[2025-04-03] MEDS: ATROPINE SULF 1 MG/10ml SYR IV ONE (18:30)
[2025-04-03 19:30] VITALS: RESP 13; O2SAT 96
[2025-04-03] MEDS ORDERED: methylPREDNISolone SOD SUCC 125 MG/2 ML VL IV PRN (23:15)
[2025-04-04] VITALS (9 sets, daily range): BP systolic 134–164; BP diastolic 79–92; PULSE 44–66; RESP 16–20; TEMP 97.7–98.7; O2SAT 97–100
[2025-04-04] MEDS: KETOROLAC TROMETH 30 MG/ML 1ML VIAL IV ONE (02:30)
[2025-04-04] MEDS: ASPirin-EC 81 mg tab PO SCH (10:29)
[2025-04-04] MEDS: amLODIPine BESYLATE 5 MG TAB PO SCH (10:30)
--- NOTE | 2025-04-04 11:43 | ECG ---
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
[2025-04-04] MEDS ORDERED: MAALOX PLUS or MAALOX 30 ML PO PRN (18:45)
[2025-04-04] MEDS: PANTOPRAZOLE 40 MG/10 ML VIAL INJ IV ONE (18:45)
[2025-04-04] MEDS: MORPHINE SULFATE 4 MG/ML SYR/VIAL IV PRN (19:57)
[2025-04-05] VITALS (8 sets, daily range): BP systolic 134–142; BP diastolic 79–98; PULSE 48–78; RESP 18; TEMP 97.4–98.3; O2SAT 97–100
--- NOTE | 2025-04-05 00:36 | DVHPN2 ---
Progress Note - Dictate Date Seen: Apr 04, 2025 Subjective Syncope N/V vital signs Vital Sign Date Time Temp Pulse Resp B/P (MAP) Pulse Ox O2 Delivery O2 Flow Rate FiO2 04/04/25 20:00 54 04/04/25 20:00 16 99 Room Air* 0 21 04/04/25 19:57 160/94 04/04/25 17:00 97.8 97.8 Total Intake and Output 04/04/25 04/04/25 04/05/25 15:00 23:00 07:00 Intake Total 225 ml Balance 225 ml medications Current Medications Medications Dose Ordered Sig/Krupa Route Start Time Stop Time Status Last Admin Dose Admin Nitroglycerin 0.4 mg Q5MINP PRN SL 04/03/25 13:30 Morphine Sulfate 2 mg Q30M PRN IV 04/03/25 13:30 Acetaminophen 500 mg Q6HP PRN PO 04/03/25 13:30 Amlodipine Besylate 5 mg DAILY PO 04/04/25 10:00 04/04/25 10:30 5 MG Aspirin 81 mg DAILY PO 04/04/25 10:00 04/04/25 10:29 81 MG Docusate Sodium 100 mg QHSP PRN PO 04/03/25 13:30 Acetaminophen/ Hydrocodone Bitart 1 tab Q6HPRN PRN PO 04/03/25 13:30 04/04/25 14:43 1 TAB Ibuprofen 600 mg TIDPRN PRN PO 04/03/25 13:30 Meclizine HCl 25 mg Q8HPRN PRN PO 04/03/25 13:30 Valsartan 160 mg BID@0700,1800 PO 04/03/25 18:00 04/04/25 17:45 160 MG Methylprednisolone Sodium Succinate 80 mg PRN PRN IV 04/03/25 23:15 Morphine Sulfate 2 mg Q6HPRN PRN IV 04/04/25 18:45 04/04/25 19:57 2 MG Al Hydrox/Mg Hydrox/Simethicone 30 ml Q6HP PRN PO 04/04/25 18:45 Pantoprazole Sodium 40 mg BID IV 04/05/25 10:00 laboratory and microbiology Laboratory Tests 04/03/25 12:58 Test 04/03/25 12:58 Range/Units Serum Glucose 124 H 74-106 mg/dL Problem List Syncope Sinus bradycardia HOSSEIN GARCIA MD Apr 05, 2025 00:36
[2025-04-05] MEDS: D5W/LACTATED RINGERS 1,000 ML IV SCH (02:01)
[2025-04-05 07:39] LABS: Basophils # (auto) 0 10 ^3/uL (0-0.2); Basophils % (auto) 0.3 % (0.0-2.0); Eosinophils # (auto) 0.1 10 ^3/uL (0-0.8); Eosinophils % (auto) 1.1 % (0.0-7.0); Hematocrit 42.5 % (36.0-46.0); Hemoglobin 14.9 g/dL (12.2-16.2); Lymphocytes # (auto) 2.7 10 ^3/uL (0.4-5.4); Lymphocytes % (auto) 53.1 % (10.0-50.0); Mean Corpuscular Hemoglobin 30.5 pg (28.0-32.0); Mean Corpuscular Volume 87.1 fL (80.0-100.0); Monocytes # (auto) 0.3 10 ^3/uL (0-1.3); Monocytes % (auto) 5.8 % (0.0-12.0); Neutrophils % (auto) 39.7 % (37.0-80.0); Nucleated Red Blood Cells % 0.1 %; Platelet Count (auto) 269 10^3/uL (140-450); Red Blood Cells 4.88 10^6/uL (4.0-5.20); Red Cell Distribution Width 13.2 % (11.8-14.3); White Blood Cell 5.1 10^3/uL (4.4-10.8)
[2025-04-05 07:52] LABS: Alanine Aminotransferase 24 U/L (7-40); Alkaline Phosphatase 71 U/L (46-116); Anion Gap 10 (5-15); BUN/Creatinine Ratio 11.5 (10.0-20.0); Calcium 10.3 mg/dL (8.7-10.4); Carbon Dioxide 27 mmol/L (20-31); Chloride 105 mmol/L (98-107); Potassium 3.6 mmol/L (3.5-5.1); Sodium 142 mmol/L (136-145); Total Protein 7.4 g/dL (5.7-8.2); Triglycerides 142 mg/dL (< 150)
[2025-04-05 07:53] LABS: Magnesium 2.2 mg/dL (1.6-2.6)
[2025-04-05 07:54] LABS: Albumin 4.7 g/dL (3.2-4.8); Aspartate Aminotransferase 14 U/L (13-40); Bilirubin, Total 0.8 mg/dL (0.2-1.0); Blood Urea Nitrogen 9 mg/dL (9-23); Cholesterol 244 mg/dL (< 200); Glucose 114 mg/dL (74-106); HDL Cholesterol 61 mg/dL (40-59); LDL Cholesterol 156 mg/dL (< 100); Phosphorus 3.2 mg/dL (2.4-5.1)
--- NOTE | 2025-04-05 08:30 | DVH ---
Carotid Duplex Date: 04/05/2025 07:22 AM Clinical History: syncope Comparison: US CAROTID DUPLX W COLOR DOP on DOS: 10/30/23 Technique: Duplex Doppler evaluation of the extracranial carotid and vertebral arteries including col or Doppler and spectral/pulsed waveform analysis was performed. Findings: RIGHT SIDE: The peak systolic velocities are 77 cm/s in the distal CCA and 89 cm/s in the proximal ICA.The ICA/CC A ratio is less than 2. The external carotid artery is patent with peak systolic velocity of 97 cm/s proximally. There is appropriate antegrade flow in the right vertebral artery. LEFT SIDE: The peak systolic velocities are 68 cm/s in the distal CCA and 111 cm/s in the proximal ICA.. The ICA /CCA ratio is less than 2. The external carotid artery is patent with peak systolic velocity of 55 cm/s proximally. There is appropriate antegrade flow in the left vertebral artery. IMPRESSION: No hemodynamically significant stenosis noted in the right carotid system. No hemodynamically significant stenosis noted in the left carotid system. Reference: Radiology 2003; 229:340-346
[2025-04-05] MEDS: PANTOPRAZOLE 40 MG/10 ML VIAL INJ IV SCH (10:25)
--- NOTE | 2025-04-05 17:32 | DVHSR ---
APPROVED REPORT EXAM: Two-dimensional and M-mode echocardiogram with Doppler, color Doppler and Bubble Study. Blood Pressure: 136/79 mmHg INDICATION Syncope RISK FACTORS Height: 5'6", Weight: 165 DIMENSIONS LVDd4.4 (3.8-5.7cm)LA (2D)3.6 (1.9-4.0cm)Aortic Root2.8 (2.0-3.7cm) LVDs2.3 (2.5-4.0cm)LA (MM) (1.9-4.0cm)Aortic Cusp Exc2.1 (1.5-2.0cm) EF (%) 78.0 (55-70%)Rt. Atrium3.6 (1.9-4.0cm)Asc. Aorta3.2 cm IVSd0.9 (0.7-1.1cm)RV (D)3.1 (1.8-2.4cm) PWd0.8 (0.7-1.1cm) Mitral Valve MitralMitral Stenosis E wave0.72m/sMV Mean GR.mmHg A wave0.78m/sMV Peak GR.mmHg E/A ratio0.92D MVAcm2 DECEL [id number] 1/2 Timems Aortic Valve Aortic ValveAortic Stenosis V10.89m/Bib Mean GR.3mmHg V21.20m/Bib Peak GR.6mmHg LVOT Diameter2.0 (1.8-2.4cm)Doppler AVA2.33cm2 Pulmonic Valve V20.81m/s Tricuspid Valve TR Velocity2.00m/s [id number] Conclusion lvef 60% moderate LVH grade 1 diastolic dysfunction normal rv function left atrium enlarged no severe valve abnormaliteis noted
--- NOTE | 2025-04-06 00:10 | DVHPN2 ---
Progress Note - Dictate Date Seen: Apr 05, 2025 Subjective Syncope N/V Received carotid art doppler study Received 2 D echo vital signs Vital Sign Date Time Temp Pulse Resp B/P (MAP) Pulse Ox O2 Delivery O2 Flow Rate FiO2 04/05/25 22:00 52 04/05/25 21:00 98.1 18 140/98 (112) 99 98.1 04/05/25 20:00 Room Air* 0 21 Total Intake and Output 04/05/25 04/05/25 04/06/25 15:00 23:00 07:00 Intake Total 1000 ml 1300 ml Balance 1000 ml 1300 ml medications Current Medications Medications Dose Ordered Sig/Krupa Route Start Time Stop Time Status Last Admin Dose Admin Nitroglycerin 0.4 mg Q5MINP PRN SL 04/03/25 13:30 Morphine Sulfate 2 mg Q30M PRN IV 04/03/25 13:30 Acetaminophen 500 mg Q6HP PRN PO 04/03/25 13:30 Amlodipine Besylate 5 mg DAILY PO 04/04/25 10:00 04/05/25 10:25 5 MG Aspirin 81 mg DAILY PO 04/04/25 10:00 04/05/25 10:25 81 MG Docusate Sodium 100 mg QHSP PRN PO 04/03/25 13:30 Acetaminophen/ Hydrocodone Bitart 1 tab Q6HPRN PRN PO 04/03/25 13:30 04/04/25 14:43 1 TAB Ibuprofen 600 mg TIDPRN PRN PO 04/03/25 13:30 Meclizine HCl 25 mg Q8HPRN PRN PO 04/03/25 13:30 Valsartan 160 mg BID@0700,1800 PO 04/03/25 18:00 04/05/25 17:24 160 MG Methylprednisolone Sodium Succinate 80 mg PRN PRN IV 04/03/25 23:15 Morphine Sulfate 2 mg Q6HPRN PRN IV 04/04/25 18:45 04/05/25 20:12 2 MG Al Hydrox/Mg Hydrox/Simethicone 30 ml Q6HP PRN PO 04/04/25 18:45 Pantoprazole Sodium 40 mg BID IV 04/05/25 10:00 04/05/25 10:25 40 MG Dextrose/Lactated Ringer's 1,000 ml @ 75 mls/hr [id number] IV 04/05/25 00:30 04/05/25 13:26 75 MLS/HR laboratory and microbiology Laboratory Tests 04/05/25 07:00 Test 04/05/25 07:00 Range/Units Serum Glucose 114 H 74-106 mg/dL Problem List Syncope Sinus bradycardia HOSSEIN GARCIA MD Apr 06, 2025 00:10
[2025-04-06 01:00] VITALS: BP 134/90; PULSE 48; RESP 18; TEMP 98.4; O2SAT 97
[2025-04-06 05:00] VITALS: BP 146/88; PULSE 58; RESP 18; TEMP 98.7; O2SAT 98
[2025-04-06 08:00] VITALS: PULSE 63; RESP 18; O2SAT 99
[2025-04-06 09:00] VITALS: BP 130/80; PULSE 47; RESP 17; TEMP 97.6; O2SAT 99
--- NOTE | 2025-04-06 09:53 | DVH ---
PROCEDURE: MRI BRAIN HEAD WO CONTRAST INDICATION: Syncope EXAM DATE: 04/06/2025 08:48 AM COMPARISON: MRI BRAIN HEAD WO CONTRAST on DOS: 10/30/23 TECHNIQUE: MRI of the brain without intravenous contrast. FINDINGS: Diffusion weighted images of the brain demonstrate no evidence of acute infarction. There is no evidence of acute intracranial hemorrhage, extra-axial collection, mass effect, midline s hift, herniation or hydrocephalus. The ventricles, sulci and cisterns appear age appropriate. The signal intensities of the brain parenchyma are within normal limits. There are no signal abnormalities on the susceptibility weighted sequences. The major vascular flow voids are present. The visualized paranasal sinuses and mastoid air cells are clear. The surrounding soft tissues and o sseous structures are unremarkable. IMPRESSION: 1. No evidence of acute infarction, intracranial hemorrhage, mass effect or hydrocephalus. HS:Y
[2025-04-06] MEDS ORDERED: ASPirin-EC 81 mg tab PO SCH (10:00)
[2025-04-06 13:00] VITALS: BP 146/82; PULSE 44; RESP 17; TEMP 98.1; O2SAT 98
[2025-04-06 16:56] VITALS: BP 110/73; PULSE 47; RESP 17; TEMP 98.1; O2SAT 98
[2025-04-06] MEDS ORDERED: ROSU40TA47 PO (18:25)
--- NOTE | 2025-04-06 18:29 | DVHDS2 ---
Discharge Summary Date of Admission Apr 03, 2025 at 13:16 Date of Discharge: Apr 06, 2025 Labs/Diagnostic Data: Laboratory Results Test 04/05/25 07:00 04/03/25 14:57 04/03/25 12:58 04/03/25 12:18 White Blood Count 5.1 10^3/uL (4.4-10.8) Red Blood Count 4.88 10^6/uL (4.0-5.20) Hemoglobin 14.9 g/dL (12.2-16.2) Hematocrit 42.5 % (36.0-46.0) Mean Corpuscular Volume 87.1 fL (80.0-100.0) Mean Corpuscular Hemoglobin 30.5 pg (28.0-32.0) Mean Corpuscular Hemoglobin Concent 35.0 g/dL (32.0-36.0) Red Cell Distribution Width 13.2 % (11.8-14.3) Platelet Count 269 10^3/uL (140-450) Mean Platelet Volume 7.8 fL (6.9-10.8) Neutrophils (%) (Auto) 39.7 % (37.0-80.0) Lymphocytes (%) (Auto) 53.1 % (10.0-50.0) Monocytes (%) (Auto) 5.8 % (0.0-12.0) Eosinophils (%) (Auto) 1.1 % (0.0-7.0) Basophils (%) (Auto) 0.3 % (0.0-2.0) Neutrophils # (Auto) 2.0 10 ^3/uL (1.6-8.6) Lymphocytes # (Auto) 2.7 10 ^3/uL (0.4-5.4) Monocytes # (Auto) 0.3 10 ^3/uL (0-1.3) Eosinophils # (Auto) 0.1 10 ^3/uL (0-0.8) Basophils # (Auto) 0 10 ^3/uL (0-0.2) Nucleated Red Blood Cells 0.1 % Sodium Level 142 mmol/L (136-145) Potassium Level 3.6 mmol/L (3.5-5.1) Chloride Level 105 mmol/L (98-107) Carbon Dioxide Level 27 mmol/L (20-31) Anion Gap 10 (5-15) Blood Urea Nitrogen 9 mg/dL (9-23) Creatinine 0.78 mg/dL (0.550-1.02) Glomerular Filtration Rate Calc 91 mL/min (>90) BUN/Creatinine Ratio 11.5 (10.0-20.0) Serum Glucose 114 mg/dL (74-106) Calcium Level 10.3 mg/dL (8.7-10.4) Phosphorus Level 3.2 mg/dL (2.4-5.1) Magnesium Level 2.2 mg/dL (1.6-2.6) Total Bilirubin 0.8 mg/dL (0.2-1.0) Aspartate Amino Transferase (AST) 14 U/L (13-40) Alanine Aminotransferase (ALT) 24 U/L (7-40) Alkaline Phosphatase 71 U/L (46-116) Total Protein 7.4 g/dL (5.7-8.2) Albumin 4.7 g/dL (3.2-4.8) Triglycerides Level 142 mg/dL (< 150) Cholesterol Level 244 mg/dL (< 200) LDL Cholesterol 156 mg/dL (< 100) HDL Cholesterol 61 mg/dL (40-59) Vitamin B12 Level 700 pg/mL (211-911) Troponin I High Sensitivity 10 ng/L (</=34) B-Type Natriuretic Peptide 31.50 pg/mL (0-100) Urine Color Light-yellow (Yellow) Urine Clarity Clear (Clear) Urine pH 5.5 (5.0-9.0) Urine Specific [place] 1.010 (1.001-1.035) Urine Protein Negative (Negative) Urine Ketones Negative (Negative) Urine Blood Negative /uL (Negative) Urine Nitrite Negative (Negative) Urine Bilirubin Negative (Negative) Urine Urobilinogen Normal mg/dL (Negative) Urine Leukocyte Esterase Negative /uL (Negative) Urine RBC 1 /hpf (0 - 4) Urine Microscopic WBC 1 /HPF (0-5) Urine Squamous Epithelial Cells Few /hpf (<5) Urine Bacteria Few /hpf (None Seen) Urine Mucus Few (None Seen) Urine Glucose Normal mg/dL (Normal) Urine Test Negative (Negative) Other Laboratory Tests 04/05/25 07:00 Final Diagnosis/Problems List Syncope Hypovolemia Acute gastroenteritis Discharge Disposition: Home Discharge Instruct/Medications Diet: Cardiac 2g Na,low cholest Diet comment: 1800 rex low carb, Low cholesterol Activity: Light activity Follow Up/Referral: Lev Bustos MD Medications: Pl see Discharge Statement: "Patient was advised to return to the ER or call 911 if any headaches, dizziness, shortness of breath, chest pain, abdominal pain, bleeding, fevers, or worsening of medical condition. Patient was counseled about treatment plan, medications, possible side effects, patientverbalized understanding. All questions were answered to the best of my ability. This discharge took greater then 30 minutes in planning, reviewing documentation, counseling the patient, and discussing with other team members." ASSESSMENT ASSESSMENT Assessment Syncope Hypovolemia Acute gastroenteritis HOSSEIN BUSTOS MD Apr 06, 2025 18:29
[2025-04-06] MEDS ORDERED: ATORVASTATIN 20 MG TAB PO SCH (22:00)
== END 2025-04-06 18:30 | disposition left against medical advice (07) | DRG 392 ==
LOC: EDBD 11:47 → ER 11:47 → OVERFLOW 13:16 → TELE-WESTW 04-04 01:17
PROVIDERS: ADMIT Specialist; ATTEND Specialist
DX: K52.9 Noninfective gastroenteritis and colitis, unspecified (principal); I10 Essential (primary) hypertension; G89.29 Other chronic pain; Z53.29 Procedure and treatment not carried out because of patient's decision for other reasons; E86.1 Hypovolemia; E78.00 Pure hypercholesterolemia, unspecified; E66.09 Other obesity due to excess calories; Z79.1 Long term (current) use of non-steroidal anti-inflammatories (NSAID); Z79.82 Long term (current) use of aspirin; Z79.899 Other long term (current) drug therapy; Z79.2 Long term (current) use of antibiotics; Z88.8 Allergy status to other drugs, medicaments and biological substances; Z68.26 Body mass index [BMI] 26.0-26.9, adult
CPT/HCPCS: 36415; 70450; 70551; 71045; 80048; 80053; 80061; 81001; 81025; 82607; 83735; 83880; 84100; 84484; 85025; 93005; 93306; 93886; 96360; G0378; J2470